=== PATIENT | male | born 1930 | race Asian ===

== ENCOUNTER → 2016-10-14 | Outpatient (CLI) | payer MEDICARE, OTHER ==
[~2016-10-14] MED LIST: ACET325T PO; AMBI5TAB PO; AMLO10 PO; CLON.1T TD; COLA100C3 PO; ENOX30P SQ; INSU100V2 SQ; KETAMINE HCL 500 MG/5 ML VIAL ONE; LEVEMIR SQ; LIPI10TA PO; META28.34 PO; METO25TA3 PO; NIFE30TA8 PO; NITR0.4S SL; NORC5TAB PO; NOVOLOGP2 SQ; TENE1TAB PO; TRAD5TAB PO; XANA1TAB6 PO
[2016-10-14 12:30] LABS: HEMATOCRIT 31.2 % (39.0-51.0); MEAN CORPUSCULAR HEMOGLOBIN 26.8 PG (27.0-34.0); MEAN CORPUSCULAR HGB CONC 32.3 % (32.0-36.0); PLATELET COUNT 285 TH/MM3 (150-450); RED BLOOD COUNT 3.76 MIL/MM3 (4.50-5.90); RED CELL DISTRIBUTION WIDTH 16.2 % (11.6-17.2); REVIEW FLAG FINAL; WHITE BLOOD COUNT 6.8 TH/MM3 (4.0-11.0)
[2016-10-14 12:35] LABS: INTERNATIONAL NORMALIZED RATIO 0.9 RATIO; PROTHROMBIN TIME - PATIENT 10.1 SEC (9.8-11.6)
[2016-10-14 12:53] LABS: BICARBONATE 25.4 MEQ/L (21.0-32.0); POTASSIUM 4.9 MEQ/L (3.5-5.1)
--- NOTE | 2016-10-14 22:13 | EKG ---
Date Performed: 10/14/2016 Time Performed: 12:58:01 PTAGE: 86 years EKG: Sinus rhythm WITH OCCASIONAL SUPRAVENTRICULAR PREMATURE COMPLEXES RIGHT BUNDLE BRANCH BLOCK LEFT ANTERIOR FASCICU LAR BLOCK ABNORMAL ECG Compared to the PREVIOUS TRACING , QRS pattern change precordially may be due to lead placement DOCTOR: Jerry Ruiz Interpretating Date/Time 10/14/2016 22:11:52
== END ==
LOC: CPRE 11:39
PROVIDERS: ATTEND Surgery
DX: Z01.810 Encounter for preprocedural cardiovascular examination (principal); Z01.812 Encounter for preprocedural laboratory examination; N18.6 End stage renal disease; R94.31 Abnormal electrocardiogram [ECG] [EKG]
CPT/HCPCS: 36415; 80048; 85027; 85610; 93005

== ENCOUNTER 2016-10-17 05:41 | Observation (INO) | payer MEDICARE, OTHER ==
[~2016-10-17] VITALS: Ht 165.1 cm; Wt 56.4 kg
[~2016-10-17 05:41] MED LIST changes: -ACET325T PO; -AMBI5TAB PO; -CLON.1T TD; -COLA100C3 PO; -ENOX30P SQ; -KETAMINE HCL 500 MG/5 ML VIAL ONE; -LEVEMIR SQ; -META28.34 PO; -METO25TA3 PO; -NIFE30TA8 PO; -NITR0.4S SL; -NORC5TAB PO; -NOVOLOGP2 SQ
[2016-10-17] MEDS: LACTATED RINGER'S 1000 ML IV SCH (06:00)
[2016-10-17] MEDS ORDERED: INSULIN HUMAN REGULAR 1,000 UNITS/10 ML VIAL SQ PRN (06:15)
[2016-10-17] MEDS ORDERED: METOPROLOL TARTRATE 25 MG TAB PO PRN (06:15)
[2016-10-17 06:26] VITALS: BP 199/73; PULSE 75; RESP 20; TEMP 97.9; O2SAT 99
[2016-10-17] MEDS ORDERED: HEPARIN SODIUM - SQ 10,000 UNITS/ML VIAL ONE (06:27)
[2016-10-17] MEDS: SODIUM CHLORID 0.9% 500 ML IV SCH ×2 (06:40→22:40)
--- NOTE | 2016-10-17 07:03 | PD.VS.PN ---
Pre-operative Note Pre-operative diagnosis: ESRD, need for HD access Planned procedure: R UE access using prosthetic Labs: K 4.9 last week, K pending from today Hct 31 Blood: none needed; patient refuses transfusion Imaging: AVF eval shows inadequate vein B, so prosthetic will be used Post-operative destination: PACU, floor Operative site marked: Yes Consent: Informed consent has been obtained from Vic Damon. I have explained the procedure in detail and discussed the risks, benefits, and potential complications. All questions have been answered. Patient contact information: will be in waiting room There have been no changes in the patient's history since his clinic visit that would preclude proceeding with surgery. To OR. Van Noguera MD Oct 17, 2016 07:03
[2016-10-17] MEDS ORDERED: VANCOMYCIN HCL 1000 MG VIAL ONE (07:23)
[2016-10-17] MEDS ORDERED: SODIUM CHLOR 0.9% 250 ML INJ 250 ML ONE (07:23)
[2016-10-17] MEDS ORDERED: BUPIVACAINE/EPINEPHRINE 0.5% PF 10 ML VIAL INFIL ONE (08:32)
--- NOTE | 2016-10-17 09:20 | HHI.PR ---
Immediate Post Op Note Procedure Date: Oct 17, 2016 Pre Op Diagnosis: ESRD, need for HD access Post Op Diagnosis: ESRD, need for HD access Surgeon: Van Noguera Cop Winder(s): None Procedure: R UE brach-ax with PTFE Findings: 5mm artery, 3mm vein Complications: none apparent Specimen(s) removed: none Estimated blood loss: 20 mL Anesthesia: General Drains: None Fluids: 500 mL IVF Patient to: PACU Patient Condition: Good Implant/Devices: SEE IMPLANT LOG (if applicable) Date/Time of Procedure: SEE SURGICAL CARE RECORD Van Noguera MD Oct 17, 2016 09:20
[2016-10-17] MEDS ORDERED: GLUCAGON 1 MG/ML VIAL OTHER PRN (09:30)
[2016-10-17] MEDS ORDERED: ONDANSETRON HCL 4 MG/2 ML VIAL IV PUSH PRN (09:30)
[2016-10-17] MEDS ORDERED: oxyCODONE/ACETAMINOPHEN 10 MG/325 MG TAB PO PRN (09:30)
[2016-10-17] MEDS ORDERED: oxyCODONE/ACETAMINOPHEN 5 MG/325 MG TAB PO PRN (09:30)
[2016-10-17] MEDS ORDERED: DEXTROSE 50% IN WATER 50 ML VIAL(D50) IV PUSH PRN (09:30)
[2016-10-17] MEDS ORDERED: *ONDANSETRON 4 MG VIAL PERIprocedural Use ONLY ONE (09:42)
[2016-10-17] MEDS ORDERED: DO NOT ADM ANY ANTICOAGULANT DRUGS XX PRN (10:00)
[2016-10-17] MEDS ORDERED: PROTAMINE SULFATE 50 MG/5 ML VIAL IV ONE (12:00)
[2016-10-17] MEDS ORDERED: ePHEDrine/NS 50 MG/5 ML SYR IV ONE (12:00)
[2016-10-17] MEDS ORDERED: ONDANSETRON HCL 4 MG/2 ML VIAL IV PUSH ONE (12:00)
[2016-10-17] MEDS ORDERED: SODIUM CHLORID 0.9% 500 ML INJ 500 ML IV ONE (12:00)
[2016-10-17] MEDS ORDERED: PROPOFOL 200 MG/20 ML AMP IV ONE (12:00)
[2016-10-17] MEDS: INSULIN NovoLIN REGULAR SUPPLEMENTAL SCALE SQ SCH ×2 (12:22→18:31)
--- NOTE | 2016-10-17 13:25 | MP ---
cc: ALTAF NOGUERA MD DATE OF SURGERY: 10/17/2016 PREOPERATIVE DIAGNOSIS Endstage renal disease, needs dialysis access. POSTOPERATIVE DIAGNOSIS Endstage renal disease, needs dialysis access. PROCEDURE Right upper extremity brachial artery to axillary vein arteriovenous graft. ATTENDING SURGEON Altaf Noguera MD RESIDENT SURGEON None. ANESTHESIA General. INDICATION Mr. Damon is a 86-year-old gentleman with endstage renal disease, currently dialyzed with a right chest catheter. He has no autogenous venous options. He is taken to the operating room for surgical access creation. DESCRIPTION OF PROCEDURE Informed consent was obtained from the patient. He was taken to the operating room and placed supine on the operating room table and appropriate timeout was taken to ensure the patient's identity, the operative site and planned procedure. The administration of 750 mg of vancomycin was initiated prior to skin incision and will be discontinued after a single preoperative dose. Vancomycin was chosen because of the patient's endstage renal disease. Everyone in the room agreed to the timeout and we proceeded. His right arm was prepped and draped. An incision was made at the antecubital and carried down to subcutaneous tissue with electrocautery. The brachial artery was identified and it was noted to be about 5 mm in diameter, encircled with a vesseloop. A transverse incision was made in the patient's axilla, carried to subcutaneous tissue with electrocautery. The axillary vein was noted to be quite small but dissected free including a large branch. A tunnel was then created between the two and the 6 mm PTFE was passed through the tunnel, taking caution not to twist it. The patient was systemically heparinized with 3000 units of IV heparin. Proximal and distal control of the brachial artery were obtain with profunda clamps and a longitudinal arteriotomy was made with the [place] scissors. The graft was spatulated and sewn end-to-side with running 5-0 Prolene [place] suture. At the completion it was flushed and noted to be hemostatic. A Daxa Softjaw was placed on the graft. Proximal and distal control of the axillary vein was obtained with profunda clamps and a longitudinal venotomy was made with an 11 blade and extended with Slim scissors. The vein graft was cut to appropriate length, spatulated and sewn end-to-side with running 5-0 [place] suture, several 6-0 Prolene repair sutures were required on the venous anastomosis. Good hemostasis was achieved. Heparin was reversed with protamine. The wounds were irrigated and made hemostatic and closed with 2-0 Polysorb, 3-0 Polysorb and 4-0 Monocryl. At the end of the case there was a nice palpable pulse in the wrist and the graft was palpable underneath the skin. Sponge and needle counts were correct at the end of the case. I was present and scrubbed and performed the entire procedure. MD TERESE Black/NEWTON /10:26 AM /12:46 PM
--- NOTE | 2016-10-17 14:06 | PD.VS.PN ---
Subjective POD #: 1 Procedure(s): R UE AV Fistula Subjective/Hospital Course Pt alert and oriented times 3, with slight discomfort to right arm. Incision intact with no swelling or drainage. Objective Vitals/I&O Date Time Temp Pulse Resp B/P Pulse Ox O2 Delivery O2 Flow Rate FiO2 10/17/16 10:30 80 16 167/79 98 Nasal Cannula 2 10/17/16 10:15 85 14 161/80 97 Nasal Cannula 2 10/17/16 10:00 81 20 163/80 98 Nasal Cannula 2 10/17/16 09:45 78 16 158/74 99 Nasal Cannula 2 10/17/16 09:32 97.7 77 15 166/76 100 Nasal Cannula 2 10/17/16 06:26 97.9 75 20 199/73 99 10/17/16 10/17/16 10/17/16 07:00 15:00 23:00 Intake Total 510 ml Output Total 20 ml Balance 490 ml Exam: GENERAL: SKIN: Warm and dry. HEAD: Normocephalic. EYES: No scleral icterus. No drainage. NECK: Supple, trachea midline. No JVD or lymphadenopathy. CARDIOVASCULAR: Regular rate and rhythm RESPIRATORY: Breath sounds equal bilaterally. No accessory muscle use. GASTROINTESTINAL: Abdomen soft, non-tender, nondistended. MUSCULOSKELETAL: No cyanosis, or edema. Right arm warm and dry with palpable radial pulse Current Medications Medications (Trade) Dose Ordered Sig/Lakisha Route Start Time Stop Time Status Last Admin Lactated Ringer's 1,000 ml @ 30 mls/hr Q24H IV 10/17/16 06:00 (NS 500 ml Inj) 500 ml @ 30 mls/hr [id number] IV 10/17/16 06:00 10/18/16 05:59 10/17/16 06:40 (Ecotrin Ec) 325 mg DAILY PO 10/18/16 09:00 (Zofran Inj) 4 mg Q6H PRN IV PUSH 10/17/16 09:30 (Percocet 5-325 Mg) 1 tab Q4H PRN PO 10/17/16 09:30 (Percocet 10-325 Mg) 1 tab Q4H PRN PO 10/17/16 09:30 (NovoLIN R SUPPLEMENTAL SCALE) 1 Q6HR SQ 10/17/16 12:00 10/17/16 12:22 (D50w (Vial) Inj) 25 ml UNSCH PRN IV PUSH 10/17/16 09:30 (Glucagon Inj) 1 mg UNSCH PRN OTHER 10/17/16 09:30 (Heparin Inj) 5,000 units Q12HR SQ 10/17/16 21:00 (Protonix) 20 mg DAILY PO 10/18/16 09:00 Miscellaneous Information ALL NURSING DEPARTME... UNSCH PRN XX 10/17/16 10:00 10/18/16 09:59 (Norvasc) 10 mg DAILY PO 10/17/16 11:00 (Lipitor) 10 mg HS PO 10/17/16 21:00 (Tenex) 1 mg HS PO 10/17/16 21:00 Patient Own Medication PT OWN MED: TRADJE... DAILY PO 10/18/16 09:00 Pulses: Palpable radial pulses bilat Incisions: incisions intact to right arm with no drainage or swelling, Laboratory Laboratory Tests Test 10/17/16 10/17/16 06:40 07:28 Blood Type A POSITIVE Antibody Screen NEGATIVE Blood Bank Comment Potassium Level 4.2 Assessment and Plan Plan Pt expected to be d/c tomorrow post HD Angie Ashford Oct 17, 2016 14:06
[2016-10-17] MEDS ORDERED: SODIUM CHLOR 0.9% 1000 ML INJ 1,000 ML IV PRN ×3 (16:12)
[2016-10-17] MEDS ORDERED: ALBUMIN HUMAN 25% 25 GM/100 ML BAGP IV PRN (16:15)
[2016-10-17] MEDS ORDERED: NITROGLYCERIN 0.4 MG SL 25 TABS/BTL SL PRN (16:15)
[2016-10-17] MEDS ORDERED: ACETAMINOPHEN 325 MG TAB PO PRN (16:15)
[2016-10-17] MEDS ORDERED: ONDANSETRON HCL 4 MG/2 ML VIAL IV PRN (16:15)
[2016-10-17] MEDS ORDERED: MANNITOL 12.5 GM/50 ML VIAL IV PRN (16:15)
[2016-10-17] MEDS ORDERED: GENTAMICIN SULFATE (DIALYSIS USE ONLY) 20 MG/2 ML VIAL IV PRN (16:15)
[2016-10-17] MEDS ORDERED: diphenhydrAMINE HCL 25 MG CAP PO PRN (16:15)
[2016-10-17] MEDS ORDERED: HEPARIN SODIUM - IV 10,000 UNITS/10 ML VIAL PRN (16:15)
[2016-10-17] MEDS ORDERED: GELATIN 12 MM/7 MM FOAM TOP PRN (16:15)
[2016-10-17] MEDS ORDERED: SODIUM CHLORIDE 0.9% FLUSH 5 ML FLUSH IVF PRN (16:15)
[2016-10-17] MEDS ORDERED: HEPARIN SODIUM - IV 10,000 UNITS/10 ML VIAL IVF PRN (16:15)
[2016-10-17] MEDS ORDERED: cloNIDine HCL 0.1 MG TAB PO PRN (16:15)
--- NOTE | 2016-10-17 16:16 | PD.CONS ---
HPI Service Nephrology Consult Requested By Reason for Consult ESRD on HD Primary Care Physician J Luis Moody M.D. History of Present Illness This is an 86 y/o male dialysis patient who came in for AVF creation of right arm. He has a PermCath currently being used for dialysis. His glucose is low postoperatively, he is awake, alert, but sleepy, receiving dextrose. We were consulted for dialysis management. Typical T-Th-Sat schedule, he has not missed any treatments. He is a full code, is at bedside. (Marley Colon ) Review of Systems Constitutional: COMPLAINS OF: Fatigue Respiratory: DENIES: Shortness of breath Cardiovascular: DENIES: Chest pain, Lower Extremity Edema Gastrointestinal: DENIES: Abdominal pain (Marley Colon) Past Family Social History Allergies: Coded Allergies: Shellfish (Verified Allergy, Unknown, 10/14/16) Past Medical History ESRD on HD T-Th-Sat HTN Anemia DM Hyperlipidemia DM II Past Surgical History AVF creation PermCath Reported Medications No list available Active Ordered Medications Current Medications Medications (Trade) Dose Ordered Sig/Lakisha Route Start Time Stop Time Status Last Admin Lactated Ringer's 1,000 ml @ 30 mls/hr Q24H IV 10/17/16 06:00 (NS 500 ml Inj) 500 ml @ 30 mls/hr [id number] IV 10/17/16 06:00 10/18/16 05:59 10/17/16 06:40 (Ecotrin Ec) 325 mg DAILY PO 10/18/16 09:00 (Zofran Inj) 4 mg Q6H PRN IV PUSH 10/17/16 09:30 (Percocet 5-325 Mg) 1 tab Q4H PRN PO 10/17/16 09:30 (Percocet 10-325 Mg) 1 tab Q4H PRN PO 10/17/16 09:30 (NovoLIN R SUPPLEMENTAL SCALE) 1 Q6HR SQ 10/17/16 12:00 10/17/16 12:22 (D50w (Vial) Inj) 25 ml UNSCH PRN IV PUSH 10/17/16 09:30 (Glucagon Inj) 1 mg UNSCH PRN OTHER 10/17/16 09:30 (Heparin Inj) 5,000 units Q12HR SQ 10/17/16 21:00 (Protonix) 20 mg DAILY PO 10/18/16 09:00 Miscellaneous Information ALL NURSING DEPARTME... UNSCH PRN XX 10/17/16 10:00 10/18/16 09:59 (Norvasc) 10 mg DAILY PO 10/17/16 11:00 (Lipitor) 10 mg HS PO 10/17/16 21:00 (Tenex) 1 mg HS PO 10/17/16 21:00 Patient Own Medication PT OWN MED: TRADJE... 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 (Marley Colon) Physical Exam Vital Signs Vital Signs Date Time Temp Pulse Resp B/P Pulse Ox O2 Delivery O2 Flow Rate FiO2 10/17/16 10:30 80 16 167/79 98 Nasal Cannula 2 10/17/16 10:15 85 14 161/80 97 Nasal Cannula 2 10/17/16 10:00 81 20 163/80 98 Nasal Cannula 2 10/17/16 09:45 78 16 158/74 99 Nasal Cannula 2 10/17/16 09:32 97.7 77 15 166/76 100 Nasal Cannula 2 10/17/16 06:26 97.9 75 20 199/73 99 Physical Exam Elderly male, awake in bed supine oriented x 3 but sleepy normal rate, 3/6 systolic murmur, no gallops Lungs clear in all mcgill PermCath right chest right arm AVF superior to AC fossa, slight erythema, good thrill/bruit no edema in lower extremities. Laboratory Laboratory Tests Test 10/17/16 10/17/16 06:40 07:28 Blood Type A POSITIVE Antibody Screen NEGATIVE Blood Bank Comment Potassium Level 4.2 (Marley Colon) Result Diagram: 10/17/16 07 Assessment and Plan Problem List: (1) ESRD (end stage renal disease) Plan: HD tomorrow and T--Mon, orders entered K acceptable no evidence of fluid overload electrolyte panel in am Epogen with dialysis check phosphorus in am, binders if needed high protein diet monitor AVF postoperatively, vascular following (2) HTN (hypertension) Plan: Blood pressure improved after surgery continue oral medications. (3) DM (diabetes mellitus) Plan: carefully monitor glucose, avoid hypoglycemia on insulin, encouraged nutrition (Marley Colon) Assessment and Plan patient underwent AVF placement. Dialysis on Monday. Hopefully can be discharged after dialysis. (Gzregorz Mancini MD) Marley Colon Oct 17, 2016 16:16 Grzegorz Mancini MD Oct 18, 2016 09:20
[2016-10-17 16:40] LABS: BICARBONATE 24.2 MEQ/L (21.0-32.0); POTASSIUM 3.8 MEQ/L (3.5-5.1)
[2016-10-17] MEDS ORDERED: guanFACINE HCL 1 MG TAB PO SCH (21:00)
[2016-10-17] MEDS ORDERED: ATORVASTATIN 10 MG TAB PO SCH (21:00)
[2016-10-17] MEDS: HEPARIN SODIUM - SQ 10,000 UNITS/ML VIAL SQ SCH (21:00)
[2016-10-18] VITALS: BP 141/65; PULSE 84; RESP 16; TEMP 96.9; O2SAT 92
[2016-10-18 04:00] VITALS: BP 157/67; PULSE 75; RESP 16; TEMP 98.9; O2SAT 94
[2016-10-18] MEDS: LACTATED RINGER'S 1000 ML IV SCH (06:00)
[2016-10-18] MEDS: INSULIN NovoLIN REGULAR SUPPLEMENTAL SCALE SQ SCH ×3 (06:00→12:00)
[2016-10-18 08:00] VITALS: BP 154/70; PULSE 76; RESP 18; TEMP 96.2; O2SAT 95
[2016-10-18] MEDS: HEPARIN SODIUM - SQ 10,000 UNITS/ML VIAL SQ SCH (08:42)
[2016-10-18] MEDS ORDERED: PANTOPRAZOLE SOD 20 MG DELAYED RELEASE TAB PO SCH (09:00)
[2016-10-18] MEDS ORDERED: ASPIRIN EC 325 MG TABEC PO SCH (09:00)
[2016-10-18] MEDS ORDERED: NON-FORMULARY DRUG (Linagliptin (Tradjenta) 5 MG) PO SCH (09:00)
[2016-10-18] MEDS ORDERED: PT OWN - TRADJENTA 5 MG PO SCH (09:00)
--- NOTE | 2016-10-18 09:07 | PD.VS.PN ---
Subjective Procedure(s): R UE AV Fistula Subjective/Hospital Course Pt resting comfortably with at the BS, pt is alert and oriented times 3, with slight discomfort to right arm. Objective Vitals/I&O Date Time Temp Pulse Resp B/P Pulse Ox O2 Delivery O2 Flow Rate FiO2 10/18/16 08:00 96.2 76 18 154/70 95 10/18/16 04:00 98.9 75 16 157/67 94 10/18/16 00:00 96.9 84 16 141/65 92 10/17/16 21:15 98.0 82 16 153/69 98 Room Air 10/17/16 20:00 80 15 152/74 99 Room Air 10/17/16 19:00 97.8 82 16 151/70 98 Room Air 10/17/16 18:00 80 16 151/73 97 Room Air 10/17/16 17:00 81 16 152/71 97 Room Air 10/17/16 16:00 97.6 80 16 153/74 96 Room Air 10/17/16 15:00 75 16 151/72 96 Room Air 10/17/16 14:00 80 16 149/75 96 Room Air 10/17/16 13:00 79 16 155/73 100 Nasal Cannula 2 10/17/16 12:00 78 16 159/70 99 Nasal Cannula 2 10/17/16 11:00 80 16 163/72 98 Nasal Cannula 2 10/17/16 10:40 97.5 81 16 165/75 98 Nasal Cannula 2 10/17/16 10:30 80 16 167/79 98 Nasal Cannula 2 10/17/16 10:15 85 14 161/80 97 Nasal Cannula 2 10/17/16 10:00 81 20 163/80 98 Nasal Cannula 2 10/17/16 09:45 78 16 158/74 99 Nasal Cannula 2 10/17/16 09:32 97.7 77 15 166/76 100 Nasal Cannula 2 Exam: GENERAL: SKIN: Warm and dry. MUSCULOSKELETAL: No cyanosis, or edema noted to bilat UE Pulses: RUE presents with a strong radial pulse with positive palpable thrill over AV graft Incisions: Both incisions remain intact with no redness, swelling or drainage Laboratory Laboratory Tests Test 10/17/16 15:22 Sodium Level 138 Potassium Level 3.8 Chloride Level 106 Carbon Dioxide Level 24.2 Anion Gap 8 Blood Urea Nitrogen 27 Creatinine 3.29 Estimat Glomerular Filtration 18 Rate Random Glucose 101 Calcium Level 7.8 Assessment and Plan Plan Pt to be D/C today after HD Discussed F/U appointment with pt and spouse for Nov 11 at 1000 in outpatient clinic Instructions given to pt and to call the office if any concerns or questions develop before f/u appt nAgie Ashford Oct 18, 2016 09:07
--- NOTE | 2016-10-18 09:43 | HHI.NPPN ---
Subjective Renal Failure: Chronic, End Stage Renal Disease Interval History Seen during dialysis. He is doing well postoperatively. (Marley Colon) Objective Data Data 10/17/16 10/18/16 19:00 07:00 Intake Total 990 ml Output Total 395 ml 200 ml Balance 595 ml -200 ml Intake Oral 490 ml IV Total 0 ml Other 500 ml Output Urine Total 375 ml 200 ml Estimated Blood Loss 20 ml Vital Signs Date Time Temp Pulse Resp B/P Pulse Ox O2 Delivery O2 Flow Rate FiO2 10/18/16 08:00 96.2 76 18 154/70 95 10/18/16 04:00 98.9 75 16 157/67 94 10/18/16 00:00 96.9 84 16 141/65 92 10/17/16 21:15 98.0 82 16 153/69 98 Room Air 10/17/16 20:00 80 15 152/74 99 Room Air 10/17/16 19:00 97.8 82 16 151/70 98 Room Air 10/17/16 18:00 80 16 151/73 97 Room Air 10/17/16 17:00 81 16 152/71 97 Room Air 10/17/16 16:00 97.6 80 16 153/74 96 Room Air 10/17/16 15:00 75 16 151/72 96 Room Air 10/17/16 14:00 80 16 149/75 96 Room Air 10/17/16 13:00 79 16 155/73 100 Nasal Cannula 2 10/17/16 12:00 78 16 159/70 99 Nasal Cannula 2 10/17/16 11:00 80 16 163/72 98 Nasal Cannula 2 10/17/16 10:40 97.5 81 16 165/75 98 Nasal Cannula 2 10/17/16 10:30 80 16 167/79 98 Nasal Cannula 2 10/17/16 10:15 85 14 161/80 97 Nasal Cannula 2 10/17/16 10:00 81 20 163/80 98 Nasal Cannula 2 10/17/16 09:45 78 16 158/74 99 Nasal Cannula 2 (Marley Colon) -: 10/17/16 1522 Tubes & Lines: Perma-Cath (Marley Colon) Physical Exam General Appearance: Well Developed, No Acute Distress, Comfortable (Marley Colon) Eyes Eye Exam: Pupils Equal (Marley Colon) Throat Throat Exam: Oral Mucosa [place] & Moist (Marley Colon) Pulmonary Resp Exam: Clear Bilaterally, Breath Sounds Equal (Marley Colon) Cardiology CV Exam: Normal Sinus Rhythm CV Remarks 3/6 systolic murmur (Marley Colon) Gastrointestinal/Abdomen GI Exam: Soft, Non-Tender, Bowel Sounds Present (Marley Colon) Musculoskeletal MS Exam: Joints Intact, Good Strength (Marley Colon) Integumentary Skin Exam: Clear, Warm, Dry, Intact (Marley Colon) Extremeties Extremities Exam: No Edema, Pedal Pulses Palpable Extremeties Remarks right arm, new AVF, faint thrill/bruit, (Marley Colon) Neurologic Neuro Exam: Alert, Awake, Oriented, Speech Clear, Moving All Extremities ( Marley Colon) Assessment/Plan Discussed Condition With: Patient Assessment Summary: Anemia of CKD, Hypertension, End Stage Renal Disease Problem List: (1) ESRD (end stage renal disease) Plan: Seen during dialysis on a 3K, 350 BFR, goal 2L using PermCath for HD s/p AVF creation yesterday no electrolyte concerns he is stable for discharge after dialysis if approved by vascular. has outpatient HD arrangement high protein diet monitor AVF postoperatively, vascular following (2) HTN (hypertension) Plan: Blood pressure acceptable continue oral medications. (3) DM (diabetes mellitus) Plan: carefully monitor glucose, avoid hypoglycemia on insulin, encouraged nutrition (Marley Colon) Plan patient was seen and examined during dialysis. Tolerating 2 liters of UF. He is stable for discharge from renal standpoint. AVF : positive thrill and bruit. ( Grzegorz Mancini MD) Marley Colon Oct 18, 2016 09:43 Grzegorz Mancini MD Oct 18, 2016 10:49
[2016-12-29] MEDS ORDERED: CLON.1T TD (08:05)
[2016-12-29] MEDS ORDERED: NIFE30TA8 PO (08:05)
[2016-12-29] MEDS ORDERED: ENOX30P SQ (08:05)
[2016-12-29] MEDS ORDERED: ACET325T PO (08:05)
[2016-12-29] MEDS ORDERED: NITR0.4S SL (08:05)
[2016-12-29] MEDS ORDERED: AMBI5TAB PO ×2 (08:05→08:18)
[2016-12-29] MEDS ORDERED: META28.34 PO (08:05)
[2016-12-29] MEDS ORDERED: METO25TA3 PO (08:05)
[2016-12-29] MEDS ORDERED: TENE1TAB PO (08:05)
[2016-12-29] MEDS ORDERED: LIPI10TA PO (08:05)
[2016-12-29] MEDS ORDERED: LEVEMIR SQ (08:05)
[2016-12-29] MEDS ORDERED: COLA100C3 PO (08:05)
[2016-12-29] MEDS ORDERED: NOVOLOGP2 SQ (08:10)
== END 2016-10-18 14:24 | disposition home or self-care (01) ==
LOC: HSDC 05:41 → HSDI 09:25 → N06B 23:04
PROVIDERS: ADMIT Surgery; ATTEND Surgery
DX: I12.0 Hypertensive chronic kidney disease with stage 5 chronic kidney disease or end stage renal disease (principal); E11.22 Type 2 diabetes mellitus with diabetic chronic kidney disease; N18.6 End stage renal disease; D64.9 Anemia, unspecified; E78.5 Hyperlipidemia, unspecified; Z99.2 Dependence on renal dialysis
CPT/HCPCS: 01844; 36830; 76937; 80048; 82948; 84132; 86850; 86900; 86901; 90935; 96374; C1768; G0378; J1580; J1644; J2405; J2720; J3010; J3370; J7040; J7050

== ENCOUNTER → 2016-11-02 | Outpatient (CLI) | payer MEDICARE, OTHER ==
[~2016-11-02] MED LIST changes: +ACET325T PO; +AMBI5TAB PO; +CLON.1T TD; +COLA100C3 PO; +ENOX30P SQ; +LEVEMIR SQ; +META28.34 PO; +METO25TA3 PO; +NIFE30TA8 PO; +NITR0.4S SL; +NORC5TAB PO; +NOVOLOGP2 SQ; -XANA1TAB6 PO
[2016-11-02 09:21] LABS: HEMATOCRIT 33.1 % (39.0-51.0); MEAN CELL VOLUME 84.1 FL (80.0-100.0); MEAN CORPUSCULAR HEMOGLOBIN 26.8 PG (27.0-34.0); MEAN CORPUSCULAR HGB CONC 31.9 % (32.0-36.0); PLATELET COUNT 275 TH/MM3 (150-450); RED BLOOD COUNT 3.93 MIL/MM3 (4.50-5.90); RED CELL DISTRIBUTION WIDTH 16.8 % (11.6-17.2); WHITE BLOOD COUNT 7.4 TH/MM3 (4.0-11.0)
[2016-11-02 09:24] LABS: HEMO FLAGS AUTO DIFF
[2016-11-02 10:14] LABS: BASOPHILS 2 % (0-2); EOSINOPHILS 2 % (0-4); NEUTROPHIL # MANUAL DIFF 5.8 TH/MM3 (1.8-7.7); PLATELET ESTIMATE SMEAR NORMAL (NORMAL); PLATELET MORPHOLOGY NORMAL (NORMAL); POLYS (SEG NEUTROPHILS) 78 % (16-70); SCAN/DIFF FINAL DIFF MANUAL; WBC DIFF SAMPLE 100
[2016-11-02 10:16] LABS: ALKALINE PHOSPHATASE 111 U/L (45-117); ALT (GPT) 12 U/L (12-78); ANION GAP 10 MEQ/L (5-15); AST (GOT) 14 U/L (15-37); BICARBONATE 24.4 MEQ/L (21.0-32.0); BLOOD UREA NITROGEN 22 MG/DL (7-18); CHLORIDE 104 MEQ/L (98-107); FERRITIN 212 NG/ML (26-388); GLOMERULAR FILTRATION RATE 20 ML/MIN (>89); GLUCOSE,FASTING 85 MG/DL (74-99); HDL CHOLESTEROL 83.1 MG/DL (40.0-60.0); LDL CHOLESTEROL 81 MG/DL (0-99); POTASSIUM 4.7 MEQ/L (3.5-5.1); SODIUM (NA) 138 MEQ/L (136-145); TOTAL BILIRUBIN ADULT 0.2 MG/DL (0.2-1.0); TRANSFERRIN IRON PROFILE 220 MG/DL (200-360)
[2016-11-02 15:51] LABS: HEMOGLOBIN A1b 0.9 %; HEMOGLOBIN Ao 83.6 %; HEMOGLOBIN F 1.1 %; HEMOGLOBIN LA1C 1.8 %; HEMOGLOBIN P3 4.2 %
== END ==
LOC: PLAB 06:45
PROVIDERS: ATTEND Internal Medicine
DX: E78.5 Hyperlipidemia, unspecified (principal); I12.9 Hypertensive chronic kidney disease with stage 1 through stage 4 chronic kidney disease, or unspecified chronic kidney disease; N18.4 Chronic kidney disease, stage 4 (severe); E11.22 Type 2 diabetes mellitus with diabetic chronic kidney disease; D63.1 Anemia in chronic kidney disease
CPT/HCPCS: 36415; 80053; 80061; 82607; 82728; 82746; 83036; 83540; 83550; 84443; 85007; 85027

== ENCOUNTER 2016-12-07 06:11 | Day surgery (SDC) | payer MEDICARE, OTHER ==
[~2016-12-07] VITALS: Ht 165.1 cm; Wt 55.7 kg
[~2016-12-07 06:11] MED LIST changes: -ACET325T PO; -AMBI5TAB PO; -CLON.1T TD; -COLA100C3 PO; -ENOX30P SQ; -LEVEMIR SQ; -META28.34 PO; -METO25TA3 PO; -NIFE30TA8 PO; -NITR0.4S SL; -NORC5TAB PO; -NOVOLOGP2 SQ
[2016-12-07 07:05] LABS: AUTOMATED NEUTROPHIL # 3.6 TH/MM3 (1.8-7.7); BASOPHIL # 0.1 TH/MM3 (0-0.2); BASOPHIL % 0.9 % (0.0-2.0); EOSINOPHIL # 0.3 TH/MM3 (0-0.4); EOSINOPHIL % 4.9 % (0.0-4.0); HEMO FLAGS DIFF FINAL; LYMPH % 20.2 % (9.0-44.0); LYMPHOCYTE # 1.2 TH/MM3 (1.0-4.8); MEAN CELL VOLUME 83.7 FL (80.0-100.0); MEAN CORPUSCULAR HEMOGLOBIN 27.8 PG (27.0-34.0); MEAN CORPUSCULAR HGB CONC 33.3 % (32.0-36.0); MONO % 12.2 % (0.0-8.0); NEUT % 61.8 % (16.0-70.0); PLATELET COUNT 209 TH/MM3 (150-450); RED BLOOD COUNT 4.66 MIL/MM3 (4.50-5.90); RED CELL DISTRIBUTION WIDTH 16.8 % (11.6-17.2); WHITE BLOOD COUNT 5.9 TH/MM3 (4.0-11.0)
[2016-12-07 07:12] VITALS: BP 174/74; PULSE 64; RESP 18; TEMP 98; O2SAT 100
[2016-12-07 07:26] LABS: POTASSIUM 4.1 MEQ/L (3.5-5.1)
[2016-12-07] MEDS ORDERED: HEPARIN-NS/PF INJ 500 ML ONE (08:48)
[2016-12-07] MEDS ORDERED: methylPREDNISolone SOD SUCC 125 MG/2 ML VIAL ONE (08:53)
[2016-12-07] MEDS ORDERED: HEPARIN SODIUM - IV 10,000 UNITS/10 ML VIAL ONE (09:00)
--- NOTE | 2016-12-07 09:21 | HHI.PR ---
Immediate Post Op Note Procedure Date: Dec 07, 2016 Pre Op Diagnosis: failing R UE fistula Post Op Diagnosis: failing R UE fistula, outflow stenosis Surgeon: Van Noguera Crusher Screen Repairer(s): none Procedure: R UE fistulogram FURNITURE INSPECTOR of outflow stenosis (6mm) Findings: outflow stenosis Complications: none apparent Specimen(s) removed: none Estimated blood loss: trace Anesthesia: MAC Drains: None Patient to: Other (DOCU) Patient Condition: Good Implant/Devices: SEE IMPLANT LOG (if applicable) Date/Time of Procedure: SEE SURGICAL CARE RECORD Van Noguera MD Dec 07, 2016 09:21
--- NOTE | 2016-12-07 09:25 | PD.VS.DC ---
Discharge Summary Admission Date: 12/07/16 Discharge Date: Dec 07, 2016 Admission Diagnosis: (1) ESRD (end stage renal disease) Discharge Diagnosis: (1) ESRD (end stage renal disease) Status: Acute Brief History from admission 86 yo male with ESRD, s/p R UE AVG. Pulsatile on exam. Scheduled for outpatient fistulogram Procedure(s): R UE fistulogram PRINTING PRESS OPERATOR APPRENTICE of outflow vein (6mm) Significant Findings Laboratory Tests Test 12/07/16 06:50 Mean Platelet Volume 6.8 FL (7.0-11.0) Monocytes (%) (Auto) 12.2 % (0.0-8.0) Eosinophils (%) (Auto) 4.9 % (0.0-4.0) Blood Urea Nitrogen 22 MG/DL (7-18) Creatinine 2.87 MG/DL (0.60-1.30) Estimat Glomerular Filtration 21 ML/MIN (>89) Rate Calcium Level 8.3 MG/DL (8.5-10.1) Hospital Course: Pt underwent R UE fistulogram and PRINTING PRESS OPERATOR APPRENTICE of outflow stenosis. Pt tolerated well. No apparent procedural complications Discharge Condition: Good Discharge Disposition: Discharge Home Any questions or concerns: Call [facility] Heart [facility] V[facility] Surgery at [facility] [phone] Van Noguera MD Dec 07, 2016 09:25
[2016-12-07] MEDS ORDERED: IODIXANOL 320 MG/ML 100 ML VIAL (for Cath Lab) OTHER ONE (10:55)
--- NOTE | 2016-12-07 13:02 | MP ---
cc: ALTAF NOGUERA MD DATE OF SURGERY 12/07/2016 PREOPERATIVE DIAGNOSIS Failing right upper extremity arteriovenous fistula POSTOPERATIVE DIAGNOSIS Failing right upper extremity arteriovenous fistula PROCEDURE Right upper extremity fistulogram, angioplasty of outflow vein SURGEON Altaf Noguera MD ANESTHESIA Local with sedation INDICATIONS Mr. Damon is an 86 year-old gentleman with right upper extremity brachial artery, axillary vein, arteriovenous graft. It is pulsatile and he is taken to the operating room for angiographic evaluation and treatment. There are no prior catheterizations for my review. DESCRIPTION OF PROCEDURE Informed consent was obtained. The patient was taken to the operating room, placed supine on the operating room table. An appropriate time out as taken to ensure the patient's identity, the operative site, and planned procedure. The administration of antibiotics was not necessary since this is a clean procedure without the planned implantation of any foreign object and everyone in the room agreed with the time out and we proceeded. His right arm was then prepped and draped and locally anesthetized with 1% lidocaine. A 21 gauge micropuncture needle was used to access the fistula. This was exchanged using Seldinger technique through the Micropuncture sheath through which a fistulogram was obtained. The patient was systemically heparinized with 3000 units of IV heparin and 0.035 Stork wire was introduced and the Micropuncture sheath was exchanged for a 5 Serbian sheath and the outflow vein was angioplastied with a 6 mm balloon. At the completion, the angiogram showed improvement in the stenosis. There was no extravasation. The wire, cath and sheath were removed and pressure held for hemostasis. There were no complications. I was present and scrubbed for the entire procedure. MD TERESE Black/TINA /9:32 AM /12:47 PM MEENU
[2016-12-29] MEDS ORDERED: NITR0.4S SL (08:05)
[2016-12-29] MEDS ORDERED: METO25TA3 PO (08:05)
[2016-12-29] MEDS ORDERED: COLA100C3 PO (08:05)
[2016-12-29] MEDS ORDERED: LIPI10TA PO (08:05)
[2016-12-29] MEDS ORDERED: NIFE30TA8 PO (08:05)
[2016-12-29] MEDS ORDERED: ACET325T PO (08:05)
[2016-12-29] MEDS ORDERED: TENE1TAB PO (08:05)
[2016-12-29] MEDS ORDERED: CLON.1T TD (08:05)
[2016-12-29] MEDS ORDERED: AMBI5TAB PO ×2 (08:05→08:18)
[2016-12-29] MEDS ORDERED: LEVEMIR SQ (08:05)
[2016-12-29] MEDS ORDERED: ENOX30P SQ (08:05)
[2016-12-29] MEDS ORDERED: META28.34 PO (08:05)
[2016-12-29] MEDS ORDERED: NOVOLOGP2 SQ (08:10)
--- NOTE | 2017-02-20 16:04 | HHI.HP ---
History of Present Illness Chief Complaint: L UE swelling after L UE access History of Present Illness 86 yo male with ESRD, s/p R UE AVG. Pulsatile on exam. Scheduled for outpatient fistulogram no f/c of late and no reason to preclude procedure. Past/Family/Social History Past Medical History HTN DM constipation ESRD Past Surgical History AVF Social History nonsmoker, lives with Home Medications Active Scripts Zolpidem (Ambien)5 Mg Tab5 Mg PO HS PRN (INSOMNIA) #30 TAB Ref 0 Prov:Jayla Kohler MD 12/29/16 Insulin Aspart Inj (Novolog Inj)1,000 Unit/10 Ml Vial1-9 Units SQ ACHS #10 ML Ref 0 Max dose at bedtime:( )units; sugars less than 70,(0)units; sugars 150-199,(1) unit; sugars 200-249,(3) units; sugars 250-299,(5) units; sugars 300-349,(7) units; sugars greater than 349,(9) units Prov:Dahiana Weber 12/29/16 Enoxaparin Inj (Lovenox Inj)30 Mg/0.3 Ml Syr30 Mg SQ DAILY #14 INJECTION Prov:Dahiana Weber 12/29/16 Nifedipine ER 24 HR 30 Mg Tab30 Mg PO DAILY 30 Days Ref 1 Prov:Dahiana Weber 12/29/16 Nitroglycerin SL (Nitrostat SL)0.4 Mg Subl0.4 Mg SL UNSCH PRN (CHEST PAIN) 30 Days Prov:Dahiana Weber 12/29/16 Insulin Detemir Inj (Levemir Inj)1,000 unit/ 10 ML Vial20 Units SQ Q12HR 30 Days Ref 1 Prov:Dahiana Weber 12/29/16 Clonidine 168 HR Patch (Efleswrl-Grj-0 168 HR Patch)0.1 Mg/24 Hr Patch1 Patch TD Q7D 30 Days Prov:Dahiana Weber 12/29/16 Acetaminophen 325 Mg Bav341 Mg PO UNSCH PRN (for headach, pain, temp > 101F) 30 Days Prov:Dahiana Weber 12/29/16 Psyllium Powder (Metamucil Smooth Texture)28.3 % Pow1 Scoop PO DAILY #30 CONTAINER Ref 1 1 rounded [place] in 8 oz of liquid at the first sign of irregularity. Prov:DawitdenilsonDahiana 12/29/16 Docusate Sodium (Colace)100 Mg Law472 Mg PO BID #60 CAP Ref 0 Prov:Dahiana Weber 12/29/16 Metoprolol Tartrate 25 Mg Tab25 Mg PO BID #60 TAB Ref 1 Prov:DawitdenilsonDahiana 12/29/16 Atorvastatin (Lipitor)10 Mg Tab10 Mg PO HS #30 TAB Ref 1 Prov:Dahiana Weber 12/29/16 Guanfacine (Tenex)1 Mg Tab1 Mg PO HS #30 TAB Ref 1 Do not crush, chew or divide tablet. Take with a meal. Prov:DawitdenilsonDahiana JAVED 12/29/16 Enoxaparin Inj (Lovenox Inj)30 Mg/0.3 Ml Syr30 Mg SQ DAILY #30 INJECTION Prov:Frances Lowery MD 12/14/16 Coded Allergies: Shellfish (Verified Allergy, Unknown, 10/14/16) Review of Systems Constitutional: COMPLAINS OF: Chills, DENIES: Fever Cardiovascular: DENIES: Chest pain Physical Exam Neuro: alert, oriented, appropriately "grumpy" bc of hunger HEENT: NC/AT Neck: no JVD Heart: reg rate Lungs: nonlabored Vascular: R UE with + thrill, pulsatile and mild arm swelling Assessment and Plan Assessment: (1) ESRD (end stage renal disease) Status: Acute Plan R UE fistulogram, to be done as outpatient. Van Noguera MD February 20, 2017 16:04
== END 2016-12-07 13:11 | disposition home or self-care (01) ==
LOC: HCAT 06:11 → HDIC 06:12 → HCAT 13:11
PROVIDERS: ATTEND Surgery
DX: T82.858A Stenosis of other vascular prosthetic devices, implants and grafts, initial encounter (principal); I12.0 Hypertensive chronic kidney disease with stage 5 chronic kidney disease or end stage renal disease; N18.6 End stage renal disease
CPT/HCPCS: 37248; 75820; 80048; 85025; C1769; C1893; J1644; J2930; J3010; Q9967

== ENCOUNTER 2016-12-09 15:40 | Inpatient (IN) | payer MEDICARE, OTHER ==
[2016-12-09 15:45] VITALS: BP 128/61; PULSE 76; RESP 18; TEMP 97.9; O2SAT 98
--- NOTE | 2016-12-09 15:57 | PD ---
HPI Chief Complaint: Fall Time Seen by Provider: 15:49 Travel History International Travel<30 days: No Contact w/Intl Traveler<30days: No Traveled to known affect area: No History of Present Illness HPI The patient is a 86-year-old male who presents emergency department for right hip pain. The patient had finished dialysis earlier today and was taking out the garbage when he tripped and fell. The patient apparently landed on the right hip and was unable to ambulate secondary to pain. The patient denies any loss of consciousness or neck pain. He does complain of right hip pain with inability to ambulate. The patient's primary physician is Dr. Moody and the patient's director dental services is Dr. Chaudhary. The patient denies any acute chest pain or shortness of breath. The patient does have a permacath in place as well as a right AV fistula, he states they now uses right AV fistula. PFSH Past Medical History Arthritis: Yes (right knee) Asthma: Yes ( A CHILD) Anxiety: No Cancer: No Cardiovascular Problems: No High Cholesterol: Yes Diabetes: Yes Diminished Hearing: Yes Endocrine: Yes Gastrointestinal Disorders: No Genitourinary: No Hepatitis: No Hiatal Hernia: No Hypertension: Yes Immune Disorder: No Musculoskeletal: Yes (OA) Neurologic: No Psychiatric: No Reproductive: No Respiratory: Yes (ASTHMA A CHILD) Thyroid Disease: No Past Surgical History Abdominal Surgery: Yes (hernia repair) AICD: No Genitourinary Surgery: Yes (TURP) Joint Replacement: No Pacemaker: No Other Surgery: Yes (INGUINAL HERNIA, HEMORRHOIDECTOMY) Social History Alcohol Use: No Tobacco Use: No Substance Use: No Allergies-Medications (Allergen,Severity, Reaction): Coded Allergies: Shellfish (Verified Allergy, Unknown, 10/14/16) Reported Meds & Prescriptions Reported Meds & Active Scripts Active Reported Humulin R Inj (Insulin Human Regular) 1,000 Unit/10 Ml Vial 6 Units SQ HS Tradjenta (Linagliptin) 5 Mg Tab 5 Mg PO DAILY Lipitor (Atorvastatin Calcium) 10 Mg Tab 10 Mg PO HS Norvasc (Amlodipine Besylate) 10 Mg Tab 10 Mg PO DAILY Tenex (Guanfacine HCl) 1 Mg Tab 1 Mg PO HS Do not crush, chew or divide tablet. Take with a meal. Review of Systems HENT: No: Headaches, Neck Pain Cardiovascular: No: Chest Pain or Discomfort Respiratory: No: Shortness of Breath Gastrointestinal: No: Nausea, Vomiting, Abdominal Pain Genitourinary: Positive: Decreased Urinary Output (history of end-stage renal disease on dialysis) Musculoskeletal: Positive: Limited ROM, Pain Neurologic: No: Dizziness Physical Exam Narrative GENERAL: Awake, alert, 86-year-old male appears his stated age and appears in moderate discomfort. SKIN: Warm and dry. HEAD: Atraumatic. Normocephalic. EYES: No drainage noted. ENT: No nasal bleeding or discharge. Mucous membranes pink and moist. NECK: Trachea midline. No JVD. CARDIOVASCULAR: Regular rate and rhythm. No murmur appreciated. RESPIRATORY: No accessory muscle use. Clear to auscultation. Breath sounds equal bilaterally. GASTROINTESTINAL: Abdomen soft, non-tender, nondistended. No rebound tenderness. MUSCULOSKELETAL: Patient is lying on his left side. Unable to assess shortening or rotation secondary to patient's disposition. However, he has tenderness over the right hip. Positive right dorsalis pedal pulse. Right AV fistula positive thrill and dressing in place. NEUROLOGICAL: Awake and alert. No obvious cranial nerve deficits. Motor grossly within normal limits. Normal speech. Patient is able to move the toes of the right foot. PSYCHIATRIC: Appropriate mood and affect; insight and judgment normal. Data Data Last Documented VS Vital Signs Date Time Temp Pulse Resp B/P Pulse Ox O2 Delivery O2 Flow Rate FiO2 12/09/16 15:45 97.9 76 18 128/61 98 Orders Complete Blood Count With Diff (12/09/16 15:50) Comprehensive Metabolic Panel (12/09/16 15:50) Prothrombin Time / Inr (Pt) (12/09/16 15:50) Act Partial Throm Time (Ptt) (12/09/16 15:50) Type And Screen (12/09/16 15:50) Chest, Single Ap (12/09/16 15:50) Hip, Uni(Ap&Lat) W Ap Pelvis (12/09/16 15:50) Iv Access Insert/Monitor (12/09/16 15:50) Oximetry (12/09/16 15:50) Ecg Monitoring (12/09/16 15:50) Morphine Inj (Morphine Inj) (12/09/16 16:00) Ondansetron Inj (Zofran Inj) (12/09/16 16:00) Sodium Chloride 0.9% Flush (Ns Flush) (12/09/16 16:00) Admit Order (Ed Use Only) (12/09/16 16:42) Consult Orthopedic (12/09/16 ) Labs Laboratory Tests Test 12/09/16 16:04 White Blood Count 8.4 TH/MM3 Red Blood Count 4.47 MIL/MM3 Hemoglobin 12.3 GM/DL Hematocrit 37.6 % Mean Corpuscular Volume 84.1 FL Mean Corpuscular Hemoglobin 27.6 PG Mean Corpuscular Hemoglobin 32.8 % Concent Red Cell Distribution Width 16.4 % Platelet Count 191 TH/MM3 Mean Platelet Volume 7.0 FL Neutrophils (%) (Auto) 74.7 % Lymphocytes (%) (Auto) 13.8 % Monocytes (%) (Auto) 9.4 % Eosinophils (%) (Auto) 1.3 % Basophils (%) (Auto) 0.8 % Neutrophils # (Auto) 6.3 TH/MM3 Lymphocytes # (Auto) 1.2 TH/MM3 Monocytes # (Auto) 0.8 TH/MM3 Eosinophils # (Auto) 0.1 TH/MM3 Basophils # (Auto) 0.1 TH/MM3 CBC Comment DIFF FINAL Differential Comment Prothrombin Time 10.1 SEC Prothromb Time International 0.9 RATIO Ratio Activated Partial 24.5 SEC Thromboplast Time Sodium Level 136 MEQ/L Potassium Level 4.2 MEQ/L Chloride Level 100 MEQ/L Carbon Dioxide Level 25.0 MEQ/L Anion Gap 11 MEQ/L Blood Urea Nitrogen 28 MG/DL Creatinine 3.30 MG/DL Estimat Glomerular Filtration 18 ML/MIN Rate Random Glucose 176 MG/DL Calcium Level 8.3 MG/DL Total Bilirubin 0.2 MG/DL Aspartate Amino Transf 14 U/L (AST/SGOT) Alanine Aminotransferase 19 U/L (ALT/SGPT) Alkaline Phosphatase 135 U/L Total Protein 7.6 GM/DL Albumin 3.6 GM/DL Blood Type A POSITIVE Antibody Screen NEGATIVE MDM Medical Decision Making Medical Screen Exam Complete: Yes Emergency Medical Condition: Yes Medical Record Reviewed: Yes Interpretation(s) Last Impressions Hip and Pelvis X-Ray 12/09/16 1550 Signed Impressions: Service Date/Time: Friday, December 09, 2016 16:19 - CONCLUSION: Intertrochanteric fracture right hip. Parish Metcalf MD Chest X-Ray 12/09/16 6190 Signed Impressions: Service Date/Time: Friday, December 09, 2016 16:21 - CONCLUSION: Minimal left basilar density likely atelectasis. Parish Metcalf MD Laboratory Tests Test 12/09/16 16:04 White Blood Count 8.4 TH/MM3 Red Blood Count 4.47 MIL/MM3 Hemoglobin 12.3 GM/DL Hematocrit 37.6 % Mean Corpuscular Volume 84.1 FL Mean Corpuscular Hemoglobin 27.6 PG Mean Corpuscular Hemoglobin 32.8 % Concent Red Cell Distribution Width 16.4 % Platelet Count 191 TH/MM3 Mean Platelet Volume 7.0 FL Neutrophils (%) (Auto) 74.7 % Lymphocytes (%) (Auto) 13.8 % Monocytes (%) (Auto) 9.4 % Eosinophils (%) (Auto) 1.3 % Basophils (%) (Auto) 0.8 % Neutrophils # (Auto) 6.3 TH/MM3 Lymphocytes # (Auto) 1.2 TH/MM3 Monocytes # (Auto) 0.8 TH/MM3 Eosinophils # (Auto) 0.1 TH/MM3 Basophils # (Auto) 0.1 TH/MM3 CBC Comment DIFF FINAL Differential Comment Prothrombin Time 10.1 SEC Prothromb Time International 0.9 RATIO Ratio Activated Partial 24.5 SEC Thromboplast Time Sodium Level 136 MEQ/L Potassium Level 4.2 MEQ/L Chloride Level 100 MEQ/L Carbon Dioxide Level 25.0 MEQ/L Anion Gap 11 MEQ/L Blood Urea Nitrogen 28 MG/DL Creatinine 3.30 MG/DL Estimat Glomerular Filtration 18 ML/MIN Rate Random Glucose 176 MG/DL Calcium Level 8.3 MG/DL Total Bilirubin 0.2 MG/DL Aspartate Amino Transf 14 U/L (AST/SGOT) Alanine Aminotransferase 19 U/L (ALT/SGPT) Alkaline Phosphatase 135 U/L Total Protein 7.6 GM/DL Albumin 3.6 GM/DL Blood Type A POSITIVE Antibody Screen NEGATIVE Differential Diagnosis Differential diagnosis includes hip fracture, hip dislocation, hip contusion, pelvic fracture, mechanical fall. Narrative Course IV was established, labs are drawn and sent, and the patient was placed on cardiac telemetry monitoring and continuous pulse oximetry monitoring. Pelvis x -ray and x-ray of the right hip were obtained. Patient was administered morphine and Zofran for his symptoms. The states the patient goes to dialysis on Tuesdays, , Saturdays. She states the patient had dialysis yesterday. X-rays positive for right intertrochanteric fracture. Therefore, the patient will be admitted. The patient's primary physician is Dr. Bansal and his director dental services is Dr. Chaudhary. I discussed the patient with the [facility] hospitalist group, Dr. Lowery, who agrees with admission. The patient will be admitted to medical floor. Dr. Sow will follow-up on the CMP which are pending. Physician Communication Physician Communication I discussed the patient with Dr. Lowery who agrees with admission. Diagnosis Primary Impression: Fracture, intertrochanteric, right femur Qualified Code: S72.141A - Fracture, intertrochanteric, right femur, closed, initial encounter Additional Impression: ESRD (end stage renal disease) Admitting Information Admitting Physician Requests: Admit Scripts Hydrocodone-Acetaminophen (Irving)5-325 mg Tab1 Tab PO Q4H PRN (PAIN) #60 TAB Ref 0 Prov:José Luis Amanda Jr., MD 12/11/16 Condition: Stable Bartolome Epperson MD Dec 09, 2016 15:57
[2016-12-09] MEDS ORDERED: MORPHINE SULFATE 4 MG/ML INJ IV PUSH ONE (16:00)
[2016-12-09] MEDS ORDERED: SODIUM CHLORIDE 0.9% FLUSH 5 ML FLUSH IVF PRN (16:00)
[2016-12-09] MEDS ORDERED: ONDANSETRON HCL 4 MG/2 ML VIAL IVP ONE (16:00)
[2016-12-09 16:23] LABS: AUTOMATED NEUTROPHIL # 6.3 TH/MM3 (1.8-7.7); BASOPHIL # 0.1 TH/MM3 (0-0.2); BASOPHIL % 0.8 % (0.0-2.0); EOSINOPHIL # 0.1 TH/MM3 (0-0.4); EOSINOPHIL % 1.3 % (0.0-4.0); HEMATOCRIT 37.6 % (39.0-51.0); HEMO FLAGS DIFF FINAL; LYMPH % 13.8 % (9.0-44.0); LYMPHOCYTE # 1.2 TH/MM3 (1.0-4.8); MEAN CELL VOLUME 84.1 FL (80.0-100.0); MEAN CORPUSCULAR HEMOGLOBIN 27.6 PG (27.0-34.0); MEAN CORPUSCULAR HGB CONC 32.8 % (32.0-36.0); MONO % 9.4 % (0.0-8.0); NEUT % 74.7 % (16.0-70.0); PLATELET COUNT 191 TH/MM3 (150-450); RED BLOOD COUNT 4.47 MIL/MM3 (4.50-5.90); RED CELL DISTRIBUTION WIDTH 16.4 % (11.6-17.2); WHITE BLOOD COUNT 8.4 TH/MM3 (4.0-11.0)
--- NOTE | 2016-12-09 16:27 | RADRPT ---
EXAM DATE/TIME: 12/09/2016 16:19 [facility] COMPARISON: No previous studies available for comparison. INDICATIONS : Right hip pain post fall today MEDICAL HISTORY : None. SURGICAL HISTORY : None. ENCOUNTER: Initial ACUITY: 1 day PAIN SCORE: 10/10 LOCATION: Right hip FINDINGS: Examination of the right hip was performed with AP Pelvis. Intertrochanteric fracture with mild displ acement right hip. The acetabulum is grossly intact. Mild degenerative changes left hip. CONCLUSION: Intertrochanteric fracture right hip. Parish Metcalf MD on December 09, 2016 at 16:25 Board Certified Radiologist. This report was verified electronically.
--- NOTE | 2016-12-09 16:27 | RADRPT ---
EXAM DATE/TIME: 12/09/2016 16:21 [facility] COMPARISON: CHEST SINGLE AP, May 07, 2016, 23:36. INDICATIONS : Trauma to chest post fall today MEDICAL HISTORY : None. SURGICAL HISTORY : Central line placement ENCOUNTER: Initial ACUITY: 1 day PAIN SCORE: 0/10 LOCATION: Bilateral chest FINDINGS: A single view of the chest demonstrates minimal left basilar density. Right-sided tunnel catheter wit h tip in the right atrium. No pneumothorax. The cardiomediastinal contours are unremarkable. Osseou s structures are intact. CONCLUSION: Minimal left basilar density likely atelectasis. Parish Metcalf MD on December 09, 2016 at 16:25 Board Certified Radiologist. This report was verified electronically.
[2016-12-09 16:32] LABS: APTT (PATIENT) 24.5 SEC (24.3-30.1); INTERNATIONAL NORMALIZED RATIO 0.9 RATIO; PROTHROMBIN TIME - PATIENT 10.1 SEC (9.8-11.6)
[2016-12-09] MEDS ORDERED: SODIUM CHLORIDE 0.9% FLUSH 5 ML FLUSH FLUSH PRN (16:45)
[2016-12-09] MEDS ORDERED: NALOXONE HCL 0.4 MG/ML AMP IV PRN (16:45)
[2016-12-09] MEDS ORDERED: ONDANSETRON HCL 4 MG/2 ML VIAL IVP PRN (16:45)
[2016-12-09 16:55] LABS: ALT (GPT) 19 U/L (12-78); ANION GAP 11 MEQ/L (5-15); AST (GOT) 14 U/L (15-37); BLOOD UREA NITROGEN 28 MG/DL (7-18); CHLORIDE 100 MEQ/L (98-107); GLOMERULAR FILTRATION RATE 18 ML/MIN (>89); POTASSIUM 4.2 MEQ/L (3.5-5.1); SODIUM (NA) 136 MEQ/L (136-145)
[2016-12-09 16:57] LABS: ALKALINE PHOSPHATASE 135 U/L (45-117); TOTAL BILIRUBIN ADULT 0.2 MG/DL (0.2-1.0)
[2016-12-09 17:11] VITALS: BP 124/62; PULSE 64; RESP 20; O2SAT 98
[2016-12-09] MEDS: LACTATED RINGER'S 1000 ML INJ 1,000 ML IV SCH (17:11)
--- NOTE | 2016-12-09 17:45 | HP.UPD ---
H&P Update Note This is an 86-year-old male with a right sided hip fracture which she sustained after a fall trying to bring the newspaper from his driveway. He has a history of diabetes and end-stage renal disease on dialysis on Tuesdays and Saturdays. He is admitted to [facility] with a consult orthopedics. He is nothing by mouth after midnight. His customer field representative is consulted. Full history and physical this to follow Frances Lowery MD Dec 09, 2016 17:43
[2016-12-09 19:22] VITALS: BP 165/84; PULSE 89; RESP 16; O2SAT 98
[2016-12-09] MEDS: MORPHINE SULFATE 4 MG/ML INJ IV PUSH PRN (19:37)
[2016-12-09 20:30] VITALS: BP 171/69; PULSE 77; RESP 17; TEMP 97.5; O2SAT 95
[2016-12-09] MEDS: INSULIN ASPART SUPPLEMENTAL SCALE SQ SCH (22:16)
[2016-12-09] MEDS: ATORVASTATIN 10 MG TAB PO SCH (22:29)
[2016-12-09] MEDS: guanFACINE HCL 1 MG TAB PO SCH (22:29)
[2016-12-09] MEDS: SODIUM CHLORIDE 0.9% FLUSH 5 ML FLUSH FLUSH SCH (22:29)
[2016-12-10] VITALS (7 sets, daily range): BP systolic 137–184; BP diastolic 63–77; PULSE 80–99; RESP 16–18; TEMP 96.2–98.6; O2SAT 93–95
[2016-12-10] MEDS: MORPHINE SULFATE 4 MG/ML INJ IV PUSH PRN (00:11)
[2016-12-10] MEDS ORDERED: VANCOMYCIN 500 MG VIAL ONE (06:25)
[2016-12-10] MEDS: INSULIN ASPART SUPPLEMENTAL SCALE SQ SCH ×4 (06:45→21:00)
[2016-12-10 07:05] LABS: AUTOMATED NEUTROPHIL # 8.8 TH/MM3 (1.8-7.7); BASOPHIL # 0.1 TH/MM3 (0-0.2); BASOPHIL % 0.6 % (0.0-2.0); EOSINOPHIL % 0.3 % (0.0-4.0); HEMATOCRIT 40.1 % (39.0-51.0); HEMO FLAGS DIFF FINAL; LYMPH % 10.7 % (9.0-44.0); LYMPHOCYTE # 1.2 TH/MM3 (1.0-4.8); MEAN CORPUSCULAR HEMOGLOBIN 26.7 PG (27.0-34.0); MEAN CORPUSCULAR HGB CONC 32.2 % (32.0-36.0); MONO % 8.8 % (0.0-8.0); NEUT % 79.6 % (16.0-70.0); PLATELET COUNT 133 TH/MM3 (150-450); RED BLOOD COUNT 4.83 MIL/MM3 (4.50-5.90); RED CELL DISTRIBUTION WIDTH 16.2 % (11.6-17.2)
[2016-12-10 07:10] LABS: WHITE BLOOD COUNT 11.1 TH/MM3 (4.0-11.0)
[2016-12-10] MEDS ORDERED: SUGAMMADEX SODIUM 200 MG/2 ML VIAL IV PUSH ONE ×2 (07:45)
[2016-12-10] MEDS ORDERED: ACETAMINOPHEN 1000 MG/100 ML VIAL IV ONE (08:33)
[2016-12-10] MEDS: SODIUM CHLORIDE 0.9% FLUSH 5 ML FLUSH FLUSH SCH ×2 (09:00→21:00)
[2016-12-10 09:41] LABS: POTASSIUM 4.5 MEQ/L (3.5-5.1)
[2016-12-10 09:42] LABS: BICARBONATE 26.2 MEQ/L (21.0-32.0)
--- NOTE | 2016-12-10 10:03 | PD.ORT.PN ---
Subjective Subjective Remarks no CP/SOB. no issues Objective Vitals Vital Signs Date Time Temp Pulse Resp B/P Pulse Ox O2 Delivery O2 Flow Rate FiO2 12/10/16 08:05 97.8 99 18 162/70 93 12/10/16 04:15 97.6 95 18 183/77 93 12/10/16 00:39 80 169/69 12/10/16 00:01 96.2 84 17 184/71 95 12/09/16 20:30 97.5 77 17 171/69 95 12/09/16 19:22 Room Air 12/09/16 19:22 89 16 165/84 98 Room Air 12/09/16 17:11 64 20 124/62 98 Room Air 12/09/16 17:07 18 12/09/16 15:45 97.9 76 18 128/61 98 I/O 12/09/16 12/09/16 12/09/16 12/10/16 12/10/16 12/10/16 07:00 15:00 23:00 07:00 15:00 23:00 Intake Total 340 ml 0 ml Output Total 25 ml Balance 315 ml 0 ml Intake Oral 340 ml 0 ml Output Urine Total 25 ml Bladder Scan Volume Amount 920 ml 610 ml # Voids 0 # Bowel Movements 0 0 Result Diagram: 12/10/16 0611 12/10/16 0833 Other Results Laboratory Tests Test 12/09/16 16:04 Prothrombin Time 10.1 SEC (9.8-11.6) Prothromb Time International 0.9 RATIO Ratio Imaging Last 24 hours Impressions Hip and Pelvis X-Ray 12/09/16 1550 Signed Impressions: Service Date/Time: Friday, December 09, 2016 16:19 - CONCLUSION: Intertrochanteric fracture right hip. Parish Metcalf MD Chest X-Ray 12/09/16 1550 Signed Impressions: Service Date/Time: Friday, December 09, 2016 16:21 - CONCLUSION: Minimal left basilar density likely atelectasis. Parish Metcalf MD Objective Remarks RLE: ext rotated leg, SILT distally, grossly nvi.+EHL/FHL Assessment & Plan Assessment and Plan HD 1- right hip IT fx Surgery cancelled today by anesthesia. patient with prior heart history and currently seeing a pupil personnel worker outpatient. Needs to be optimized cardia aquino. Dialysis today OR likely tomorrow or monday once cleared by cardiology José Luis Amanda Jr., MD Dec 10, 2016 10:03
--- NOTE | 2016-12-10 10:04 | PD.CONS ---
cc: José Luis Amanda Jr., MD HPI Service Orthopedic Surgeons Consult Requested By Primary Care Physician J Luis Moody M.D. Admission Diagnosis right intertrochanteric fracture, ESRD on HD Diagnoses: Chief Complaint: right hip fracture History of Present Illness 86-year-old male male with history of chronic kidney disease is admitted s/p fall with right hip pain and inability bear weight. X-ray taken the emergency department reveal displaced right intertrochanteric femur fracture. Patient reports he fell while taking out the trash. Denies any head injuries. Denies loss of consciousness. Currently patient's pain is 3 out of 10, exacerbated by any range of motion, relieved at rest and with IV pain medicine, pain is sharp nonradiating, not associated with any paresthesia and numbness to the right lower extremity. Patient is very active and a household ambulator.Patient lives independently and does not use any canes or walkers. She denies any chest pain or shortness of breath. The patient's primary physician is Dr. Moody and the patient's stone mason is Dr. Chaudhary. The patient denies any acute chest pain or shortness of breath. The patient does have a permacath in place as well as a right AV fistula, he states they now uses right AV fistula. Past Medical History Arthritis: Yes (right knee) Asthma: Yes ( A CHILD) Anxiety: No Cancer: No Cardiovascular Problems: No High Cholesterol: Yes Diabetes: Yes Diminished Hearing: Yes Endocrine: Yes Gastrointestinal Disorders: No Genitourinary: No Hepatitis: No Hiatal Hernia: No Hypertension: Yes Immune Disorder: No Musculoskeletal: Yes (OA) Neurologic: No Psychiatric: No Reproductive: No Respiratory: Yes (ASTHMA A CHILD) Thyroid Disease: No Past Surgical History Abdominal Surgery: Yes (hernia repair) AICD: No Genitourinary Surgery: Yes (TURP) Joint Replacement: No Pacemaker: No Other Surgery: Yes (INGUINAL HERNIA, HEMORRHOIDECTOMY) Social History Alcohol Use: No Tobacco Use: No Substance Use: No Allergies-Medications Allergies-Medications (Allergen,Severity, Reaction): Coded Allergies: Shellfish (Verified Allergy, Unknown, 10/14/16) Reported Meds & Prescriptions Reported Meds & Active Scripts Active Reported Humulin R Inj (Insulin Human Regular) 1,000 Unit/10 Ml Vial 6 Units SQ HS Tradjenta (Linagliptin) 5 Mg Tab 5 Mg PO DAILY Lipitor (Atorvastatin Calcium) 10 Mg Tab 10 Mg PO HS Norvasc (Amlodipine Besylate) 10 Mg Tab 10 Mg PO DAILY Tenex (Guanfacine HCl) 1 Mg Tab 1 Mg PO HS Do not crush, chew or divide tablet. Take with a meal. ROS Review of Systems HENT: No: Headaches, Neck Pain Cardiovascular: No: Chest Pain or Discomfort Respiratory: No: Shortness of Breath Gastrointestinal: No: Nausea, Vomiting, Abdominal Pain Genitourinary: Positive: Decreased Urinary Output (history of end-stage renal disease on dialysis) Musculoskeletal: Positive: Limited ROM, Pain Neurologic: No: Dizziness Past Family Social History Allergies: Coded Allergies: Shellfish (Verified Allergy, Unknown, 10/14/16) Active Ordered Medications Current Medications Medications (Trade) Dose Ordered Sig/Lakisha Route Start Time Stop Time Status Last Admin IV Flush 2 ml 2 ml UNSCH PRN IVF 12/09/16 16:00 (Lr 1000 ml Inj) 1,000 ml @ 50 mls/hr Q20H IV 12/09/16 16:44 12/09/16 17:11 (NS Flush) 2 ml UNSCH PRN FLUSH 12/09/16 16:45 (NS Flush) 2 ml BID FLUSH 12/09/16 21:00 12/09/16 22:29 (Zofran Inj) 4 mg Q6H PRN IVP 12/09/16 16:45 (Narcan Inj) 0.4 mg UNSCH PRN IV 12/09/16 16:45 (Morphine Inj) 2 mg Q3H PRN IV PUSH 12/09/16 17:00 12/10/16 00:11 (Norvasc) 10 mg DAILY PO 12/10/16 09:00 (Lipitor) 10 mg HS PO 12/09/16 21:00 (Tenex) 1 mg HS PO 12/09/16 21:00 12/09/16 22:29 Reported Meds & Active Scripts Active Reported Humulin R Inj (Insulin Human Regular) 1,000 Unit/10 Ml Vial 6 Units SQ HS Tradjenta (Linagliptin) 5 Mg Tab 5 Mg PO DAILY Lipitor (Atorvastatin Calcium) 10 Mg Tab 10 Mg PO HS Norvasc (Amlodipine Besylate) 10 Mg Tab 10 Mg PO DAILY Tenex (Guanfacine HCl) 1 Mg Tab 1 Mg PO HS Do not crush, chew or divide tablet. Take with a meal. Physical Exam Vital Signs Vital Signs Date Time Temp Pulse Resp B/P Pulse Ox O2 Delivery O2 Flow Rate FiO2 12/10/16 08:05 97.8 99 18 162/70 93 12/10/16 04:15 97.6 95 18 183/77 93 12/10/16 00:39 80 169/69 12/10/16 00:01 96.2 84 17 184/71 95 12/09/16 20:30 97.5 77 17 171/69 95 12/09/16 19:22 Room Air 12/09/16 19:22 89 16 165/84 98 Room Air 12/09/16 17:11 64 20 124/62 98 Room Air 12/09/16 17:07 18 12/09/16 15:45 97.9 76 18 128/61 98 Physical Exam Alert awake and oriented x 3. No acute distress. Head: NC/AT Neck: No pain with any range of motion and neck. No tenderness to palpation along posterior cervical elements. Negative Spurling. Pulmonary: Normal respiratory effort. Bilateral upper extremity: No deformities. Intact sensation distally in median , ulnar, and radial nerve. Intact motor in anterior interosseous, posterior interosseous, and ulnar nerve. 2+ radial artery pulses. Good cap refill. RIGHT lower extremity: Shortened and externally rotated. Intact sensation distally. Grossly neurovascularly intact. Positive logroll. +EHL/FHL, + PT/ DP pulses. Supple compartments. Negative Homans sign. LEFT lower extremity: Neurovascularly intact, +EHL/FHL, + PT/DP pulses. Supple compartments. Negative Homans sign. Laboratory Laboratory Tests Test 12/09/16 12/10/16 12/10/16 16:04 06:11 08:33 White Blood Count 8.4 11.1 Red Blood Count 4.47 4.83 Hemoglobin 12.3 12.9 Hematocrit 37.6 40.1 Mean Corpuscular Volume 84.1 83.0 Mean Corpuscular Hemoglobin 27.6 26.7 Mean Corpuscular Hemoglobin 32.8 32.2 Concent Red Cell Distribution Width 16.4 16.2 Platelet Count 191 133 Mean Platelet Volume 7.0 7.1 Neutrophils (%) (Auto) 74.7 79.6 Lymphocytes (%) (Auto) 13.8 10.7 Monocytes (%) (Auto) 9.4 8.8 Eosinophils (%) (Auto) 1.3 0.3 Basophils (%) (Auto) 0.8 0.6 Neutrophils # (Auto) 6.3 8.8 Lymphocytes # (Auto) 1.2 1.2 Monocytes # (Auto) 0.8 1.0 Eosinophils # (Auto) 0.1 0.0 Basophils # (Auto) 0.1 0.1 CBC Comment DIFF FINAL DIFF FINAL Differential Comment Prothrombin Time 10.1 Prothromb Time International 0.9 Ratio Activated Partial 24.5 Thromboplast Time Sodium Level 136 134 Potassium Level 4.2 4.5 Chloride Level 100 99 Carbon Dioxide Level 25.0 26.2 Anion Gap 11 9 Blood Urea Nitrogen 28 45 Creatinine 3.30 3.76 Estimat Glomerular Filtration 18 15 Rate Random Glucose 176 288 Calcium Level 8.3 7.9 Total Bilirubin 0.2 Aspartate Amino Transf 14 (AST/SGOT) Alanine Aminotransferase 19 (ALT/SGPT) Alkaline Phosphatase 135 Total Protein 7.6 Albumin 3.6 Blood Type A POSITIVE Antibody Screen NEGATIVE Result Diagram: 12/10/16 0611 12/10/16 0833 Imaging Last 72 hours Impressions Hip and Pelvis X-Ray 12/09/16 1550 Signed Impressions: Service Date/Time: Friday, December 09, 2016 16:19 - CONCLUSION: Intertrochanteric fracture right hip. Parish Metcalf MD Chest X-Ray 12/09/16 1550 Signed Impressions: Service Date/Time: Friday, December 09, 2016 16:21 - CONCLUSION: Minimal left basilar density likely atelectasis. Parish Metcalf MD Assessment & Plan Assessment and Plan 86-year-old male status post fall while taking out trash sustaining a displaced right intertrochanteric femur fracture. Patient has past medical history of heart disease, end-stage renal disease on dialysis. I recommend right hip intramedullary dominique fixation. I discussed my treatment plans with the patient, as well as risks, benefits and alternatives of surgical Intervention versus nonoperative treatment. In this case, the risks of operative intervention involves bleeding, infection, risks of damage to neurovascular structures, the risk of needing further surgery, posttraumatic arthritis and the risks involved with complication from anesthesia. We will proceed with the above procedure. The patient accepts these risks; understands and agrees with my recommendations. I also discussed my proposed postoperative care and follow-up plan. All questions were answered. Plan for OR []. Nothing by mouth []. Thanks for the consult, thanks for allowing me to participate in this patient's medical care. José Luis Amanda Jr., MD Dec 10, 2016 10:04
--- NOTE | 2016-12-10 13:41 | HHI.PR ---
Subjective Remarks 86yr old male seen and examined today. Anesthesia requested cardiac clearance prior to surgery so it was cancelled. Patient declined to have foleys in yesterday. Had urinary retention: 920ml per bladder scan. Now has a foleys in. No CP/SOB/NVD. in room. Objective Objective Results - Vital Signs Date Time Temp Pulse Resp B/P Pulse Ox O2 Delivery O2 Flow Rate FiO2 12/10/16 11:24 96.5 87 18 137/63 93 12/10/16 08:05 97.8 99 18 162/70 93 12/10/16 04:15 97.6 95 18 183/77 93 12/10/16 00:39 80 169/69 12/10/16 00:01 96.2 84 17 184/71 95 12/09/16 20:30 97.5 77 17 171/69 95 12/09/16 19:22 Room Air 12/09/16 19:22 89 16 165/84 98 Room Air 12/09/16 17:11 64 20 124/62 98 Room Air 12/09/16 17:07 18 12/09/16 15:45 97.9 76 18 128/61 98 I/O 12/09/16 12/09/16 12/09/16 12/10/16 12/10/16 12/10/16 07:00 15:00 23:00 07:00 15:00 23:00 Intake Total 340 ml 0 ml Output Total 25 ml Balance 315 ml 0 ml Intake Oral 340 ml 0 ml Output Urine Total 25 ml Bladder Scan Volume Amount 920 ml 610 ml # Voids 0 # Bowel Movements 0 0 Result Diagram: 12/10/16 0611 12/10/16 0833 Other Results Laboratory Tests Test 12/09/16 12/10/16 12/10/16 16:04 06:11 08:33 White Blood Count 8.4 11.1 Red Blood Count 4.47 4.83 Hemoglobin 12.3 12.9 Hematocrit 37.6 40.1 Mean Corpuscular Volume 84.1 83.0 Mean Corpuscular Hemoglobin 27.6 26.7 Mean Corpuscular Hemoglobin 32.8 32.2 Concent Red Cell Distribution Width 16.4 16.2 Platelet Count 191 133 Mean Platelet Volume 7.0 7.1 Neutrophils (%) (Auto) 74.7 79.6 Lymphocytes (%) (Auto) 13.8 10.7 Monocytes (%) (Auto) 9.4 8.8 Eosinophils (%) (Auto) 1.3 0.3 Basophils (%) (Auto) 0.8 0.6 Neutrophils # (Auto) 6.3 8.8 Lymphocytes # (Auto) 1.2 1.2 Monocytes # (Auto) 0.8 1.0 Eosinophils # (Auto) 0.1 0.0 Basophils # (Auto) 0.1 0.1 CBC Comment DIFF FINAL DIFF FINAL Differential Comment Prothrombin Time 10.1 Prothromb Time International 0.9 Ratio Activated Partial 24.5 Thromboplast Time Sodium Level 136 134 Potassium Level 4.2 4.5 Chloride Level 100 99 Carbon Dioxide Level 25.0 26.2 Anion Gap 11 9 Blood Urea Nitrogen 28 45 Creatinine 3.30 3.76 Estimat Glomerular Filtration 18 15 Rate Random Glucose 176 288 Calcium Level 8.3 7.9 Total Bilirubin 0.2 Aspartate Amino Transf 14 (AST/SGOT) Alanine Aminotransferase 19 (ALT/SGPT) Alkaline Phosphatase 135 Total Protein 7.6 Albumin 3.6 Blood Type A POSITIVE Antibody Screen NEGATIVE ROS General: No: Fatigue, Weakness, Other HEENT: No: Sore Throat, Dysphagia, Other Cardiac: No: Chest Pain, Edema, Palpitations, Other Pulmonary: No: Cough, SOB, Wheezing, Other GI: No: Abdominal Pain, BM, Diarrhea, N/V, 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 He is alert and awake, []. HEAD: Normocephalic without any lesion or mass noted. Facial features appear symmetric. EYES: Perrla, Normal eye movement, [] Icterus. [] Conj congestion. OROPHARYNGEAL: Oropharynx without erythema or edema. MOUTH/THROAT: Tongue midline []. Buccal mucosa is moist []. NECK: Supple. No nuchal rigidity or lymphadenopathy. Trachea midline without deviation. Thyroid not palpable, no bruits appreciated. CARDIAC: Regular rhythm, regular rate, S1 and S2 are heard. Murmur []; no gallops or rubs. LUNGS: Clear to auscultation bilaterally. [] wheeze, [] rhonchi or [] rale. No use of accessory muscles on inspiration or expiration. ABDOMEN: Soft, nontender, no organomegaly or masses. Bowel sounds are heard in all four quadrants. No rebound. No guarding. EXTREMITIES: [] edema. Pulses equal bilateral. [] cyanosis. NEUROLOGICAL: Patient mood and affect appropriate. Cranial nerves II through XII grossly intact. Muscle strength 5/5 in the upper and lower extremities bilaterally. Deep tendon reflexes are 2+ in the upper and lower extremities bilaterally. SKIN:Warm and moist PSYCH: Mood and affect appropriate Urinary Catheter: Yes Assessment to: Continue Crook insert reason: Surgical/Invasive Proced A/P Assessment and Plan Right hip fx DM-2 HTN Asthma CAD ESRD on dialysis Per anesthesia: Surgery cancelled today by anesthesia. patient with prior heart history and currently seeing a fuel cell binder outpatient. Needs to be optimized cardia aquino. Dialysis today, OR likely tomorrow or monday once cleared by cardiology Consult cardiology Start heart healthy diet for now. [facility] and Nephrology consulted. Due for dialysis today. Monitor BP closely and continue amlodipine. Monitor labs. Discussed with patient//RN. Tonya Cross MD Dec 10, 2016 13:41
[2016-12-10] MEDS ORDERED: SODIUM CHLOR 0.9% 1000 ML INJ 1,000 ML IV PRN ×3 (13:56)
[2016-12-10] MEDS ORDERED: ACETAMINOPHEN 325 MG TAB PO PRN (14:00)
[2016-12-10] MEDS ORDERED: cloNIDine HCL 0.1 MG TAB PO PRN (14:00)
[2016-12-10] MEDS ORDERED: SODIUM CHLORIDE 0.9% FLUSH 5 ML FLUSH IVF PRN (14:00)
[2016-12-10] MEDS ORDERED: MANNITOL 12.5 GM/50 ML VIAL IV PRN (14:00)
[2016-12-10] MEDS ORDERED: ONDANSETRON HCL 4 MG/2 ML VIAL IV PRN (14:00)
[2016-12-10] MEDS ORDERED: EPOETIN ALFA 10,000 UNITS/ML VIAL IV PRN (14:00)
[2016-12-10] MEDS ORDERED: HEPARIN SODIUM - IV 10,000 UNITS/10 ML VIAL IVF PRN (14:00)
[2016-12-10] MEDS ORDERED: GELATIN 12 MM/7 MM FOAM TOP PRN (14:00)
[2016-12-10] MEDS ORDERED: ALBUMIN HUMAN 25% 25 GM/100 ML BAGP IV PRN (14:00)
[2016-12-10] MEDS ORDERED: NITROGLYCERIN 0.4 MG SL 25 TABS/BTL SL PRN (14:00)
[2016-12-10] MEDS ORDERED: diphenhydrAMINE HCL 25 MG CAP PO PRN (14:00)
--- NOTE | 2016-12-10 15:01 | PD.CONS ---
HPI Service Nephrology Consult Requested By Dr. Lowery Reason for Consult ESRD Primary Care Physician J Luis Moody M.D. History of Present Illness 86 year old male with ESRD, DM, HTN on dialysis Monday, and Monday follows with Dr. Chaudhary , he has a fall and broke his right hip and await surgery , today is his regular day, he denies CP or sob, he has pain in his right leg and unable to bear weight, he has a PermCath and AVF right arm Review of Systems Constitutional: COMPLAINS OF: Fatigue Musculoskeletal: COMPLAINS OF: Joint pain, Muscle aches, Stiffness Neurologic: COMPLAINS OF: Abnormal gait Past Family Social History Allergies: Coded Allergies: Shellfish (Verified Allergy, Unknown, 10/14/16) Past Medical History Diabetes Hypertension ESRD Osteoarthritis Past Surgical History Hemorrhoidectomy Hernia repair TURP AVF Rt Reported Medications Reported Meds & Active Scripts Active Reported Humulin R Inj (Insulin Human Regular) 1,000 Unit/10 Ml Vial 6 Units SQ HS Tradjenta (Linagliptin) 5 Mg Tab 5 Mg PO DAILY Lipitor (Atorvastatin Calcium) 10 Mg Tab 10 Mg PO HS Norvasc (Amlodipine Besylate) 10 Mg Tab 10 Mg PO DAILY Tenex (Guanfacine HCl) 1 Mg Tab 1 Mg PO HS Do not crush, chew or divide tablet. Take with a meal. Active Ordered Medications Current Medications Medications (Trade) Dose Ordered Sig/Lakisha Route Start Time Stop Time Status Last Admin IV Flush 2 ml 2 ml UNSCH PRN IVF 12/09/16 16:00 (Lr 1000 ml Inj) 1,000 ml @ 50 mls/hr Q20H IV 12/09/16 16:44 12/09/16 17:11 (NS Flush) 2 ml UNSCH PRN FLUSH 12/09/16 16:45 (NS Flush) 2 ml BID FLUSH 12/09/16 21:00 12/09/16 22:29 (Zofran Inj) 4 mg Q6H PRN IVP 12/09/16 16:45 (Narcan Inj) 0.4 mg UNSCH PRN IV 12/09/16 16:45 (Morphine Inj) 2 mg Q3H PRN IV PUSH 12/09/16 17:00 12/10/16 00:11 (Norvasc) 10 mg DAILY PO 12/10/16 09:00 (Lipitor) 10 mg HS PO 12/09/16 21:00 Guanfacine HCl 1 mg 1 mg HS PO 12/09/16 21:00 12/09/16 22:29 (NS 1000 ml Inj) 1,000 ml @ 0 mls/hr Q0M PRN IV 12/10/16 13:56 Heparin Sodium (Porcine) 8000 units 8,000 units UNSCH PRN IVF 12/10/16 14:00 Sodium Chloride 1,000 ml @ 200 mls/hr Q5H PRN IV 12/10/16 13:56 (NS 1000 ml Inj) 1,000 ml @ 0 mls/hr Q0M PRN IV 12/10/16 13:56 (Mannitol Inj) 12.5 gm UNSCH PRN IV 12/10/16 14:00 (Albumin 25% Inj) 25 gm UNSCH PRN IV 12/10/16 14:00 (NS Flush) 5 ml UNSCH PRN IVF 12/10/16 14:00 (Zofran Inj) 4 mg UNSCH PRN IV 12/10/16 14:00 (Tylenol) 650 mg UNSCH PRN PO 12/10/16 14:00 (Benadryl) 25 mg UNSCH PRN PO 12/10/16 14:00 (Nitrostat Sl) 0.4 mg UNSCH PRN SL 12/10/16 14:00 (Catapres) 0.1 mg UNSCH PRN PO 12/10/16 14:00 (Epogen Inj) 2,000 units UNSCH PRN IV 12/10/16 14:00 (Gelfoam 12 Mm/7 Mm Top) 1 foam UNSCH PRN TOP 12/10/16 14:00 Family History noncontributory Social History denies smoking/ETOH Physical Exam Vital Signs Vital Signs Date Time Temp Pulse Resp B/P Pulse Ox O2 Delivery O2 Flow Rate FiO2 12/10/16 11:24 96.5 87 18 137/63 93 12/10/16 08:05 97.8 99 18 162/70 93 12/10/16 04:15 97.6 95 18 183/77 93 12/10/16 00:39 80 169/69 12/10/16 00:01 96.2 84 17 184/71 95 12/09/16 20:30 97.5 77 17 171/69 95 12/09/16 19:22 Room Air 12/09/16 19:22 89 16 165/84 98 Room Air 12/09/16 17:11 64 20 124/62 98 Room Air 12/09/16 17:07 18 12/09/16 15:45 97.9 76 18 128/61 98 Physical Exam GENERAL: Well-nourished, well-developed patient. SKIN: Warm and dry. HEAD: Normocephalic. EYES: No scleral icterus. No injection or drainage. NECK: Supple, trachea midline. No JVD or lymphadenopathy. CARDIOVASCULAR: Regular rate and rhythm without murmurs, gallops, or rubs. RESPIRATORY: Breath sounds equal bilaterally. No accessory muscle use. GASTROINTESTINAL: Abdomen soft, non-tender, nondistended. EXTREMITIES: No cyanosis, or edema. Rt leg tenderness NEUROLOGICAL: Awake, alert, and oriented x 3. Non-focal. Laboratory Laboratory Tests Test 12/09/16 12/10/16 12/10/16 16:04 06:11 08:33 White Blood Count 8.4 11.1 Red Blood Count 4.47 4.83 Hemoglobin 12.3 12.9 Hematocrit 37.6 40.1 Mean Corpuscular Volume 84.1 83.0 Mean Corpuscular Hemoglobin 27.6 26.7 Mean Corpuscular Hemoglobin 32.8 32.2 Concent Red Cell Distribution Width 16.4 16.2 Platelet Count 191 133 Mean Platelet Volume 7.0 7.1 Neutrophils (%) (Auto) 74.7 79.6 Lymphocytes (%) (Auto) 13.8 10.7 Monocytes (%) (Auto) 9.4 8.8 Eosinophils (%) (Auto) 1.3 0.3 Basophils (%) (Auto) 0.8 0.6 Neutrophils # (Auto) 6.3 8.8 Lymphocytes # (Auto) 1.2 1.2 Monocytes # (Auto) 0.8 1.0 Eosinophils # (Auto) 0.1 0.0 Basophils # (Auto) 0.1 0.1 CBC Comment DIFF FINAL DIFF FINAL Differential Comment Prothrombin Time 10.1 Prothromb Time International 0.9 Ratio Activated Partial 24.5 Thromboplast Time Sodium Level 136 134 Potassium Level 4.2 4.5 Chloride Level 100 99 Carbon Dioxide Level 25.0 26.2 Anion Gap 11 9 Blood Urea Nitrogen 28 45 Creatinine 3.30 3.76 Estimat Glomerular Filtration 18 15 Rate Random Glucose 176 288 Calcium Level 8.3 7.9 Total Bilirubin 0.2 Aspartate Amino Transf 14 (AST/SGOT) Alanine Aminotransferase 19 (ALT/SGPT) Alkaline Phosphatase 135 Total Protein 7.6 Albumin 3.6 Blood Type A POSITIVE Antibody Screen NEGATIVE Result Diagram: 12/10/16 0611 12/10/16 0833 Imaging Last Impressions Hip and Pelvis X-Ray 12/09/16 1550 Signed Impressions: Service Date/Time: Friday, December 09, 2016 16:19 - CONCLUSION: Intertrochanteric fracture right hip. Parish Metcalf MD Chest X-Ray 12/09/16 1550 Signed Impressions: Service Date/Time: Friday, December 09, 2016 16:21 - CONCLUSION: Minimal left basilar density likely atelectasis. Parish Metcalf MD Assessment and Plan Problem List: (1) ESRD (end stage renal disease) Plan: he is seen during dialysis tolerating it well UF 2 L Continue supportive care (2) Fracture, intertrochanteric, right femur Plan: need surgery (3) DM (diabetes mellitus) Plan: follow BG (4) HTN (hypertension) Plan: Monitor BP Problem Qualifiers (1) Fracture, intertrochanteric, right femur: Qualified Code: S72.141A - Fracture, intertrochanteric, right femur, closed, initial encounter (2) DM (diabetes mellitus): Inés Escalante MD Dec 10, 2016 15:01
[2016-12-10] MEDS ORDERED: GENTAMICIN SULFATE (DIALYSIS USE ONLY) 20 MG/2 ML VIAL IV PRN (15:45)
[2016-12-10] MEDS ORDERED: HEPARIN SODIUM - IV 10,000 UNITS/10 ML VIAL PRN (15:45)
[2016-12-10] MEDS ORDERED: METOPROLOL TARTRATE 25 MG TAB PO ONE (20:15)
--- NOTE | 2016-12-10 20:28 | MB ---
cc: NELLI CUEVAS M.D., MARK B. M.D. DENARD, ANTONY MD DATE OF CONSULTATION: 12/10/2016. REASON FOR CONSULTATION: Preoperative cardiac clearance for a right hip fracture surgery. HISTORY OF PRESENT ILLNESS: Mr. Daomn is a pleasant 86-year-old gentleman with history of "cardiac disease". He was established with Dr. Carcamo about two years ago who had done an echocardiogram on him. He never had a stress test. His is a retired psychiatrist and the history is obtained both from him and his at the bedside. He comes in after a fall and fracture to his right femur for which a consult was called for cardiac clearance. He denies chest pain or shortness of breath. Denies palpitations, dizziness or syncope. Denies orthopnea or PND. He has had chronic lower extremity edema since he was diagnosed with renal failure. He was started on hemodialysis in August of 2016. He said he had an AV fistula in the right arm. He has been having progressive dyspnea on exertion over the past one to two years. Denies claudications. ALLERGIES: THERE IS A QUESTIONABLE SHELLFISH ALLERGY ACCORDING TO THE NOTES BUT HE DENIED ANY ALLERGIES TO ME. PAST MEDICAL AND SURGICAL HISTORY: Includes that mentioned above. 1. History of diabetes [id number]. 2. Hypertension. 3. End-stage renal disease. 4. Hyperlipidemia. 5. Never a smoker. 6. No family history of coronary artery disease at a premature age. 7. History of osteoarthritis. 8. Status post hemorrhoidectomy. 9. Hernia repair. 10. Transurethral resection of prostate. 11. AV fistula on the right arm. MEDICATIONS AT HOME: 1. Norvasc 10 milligrams p.o. daily. 2. Tenex 1 milligram p.o. at bedtime. 3. Lipitor 10 milligrams p.o. at bedtime. 4. Tradjenta 5 milligrams p.o. daily. 5. Humulin R insulin. FAMILY HISTORY: Family history is negative for coronary artery disease, cancer, diabetes or hypertension. SOCIAL HISTORY: Denies smoking, EtOH abuse or recreational drug use. He is and lives with his who is a retired psychiatrist REVIEW OF SYSTEMS: 12-point system review was unremarkable except he started having some dyspnea on exertion about one to two years ago according to the . PHYSICAL EXAMINATION: GENERAL: On physical exam, an 86-year-old gentleman lying in bed in no apparent distress. Alert and oriented to place and time. He knew the year. Oriented to person. VITAL SIGNS: Blood pressure is 137/63, it was higher before at 183/77 mmHg. Pulse is 88 beats per minute and regular. Respirations at 16 to 18 per minute. Afebrile. HEAD, EYES, EARS, NOSE, THROAT: Head is normocephalic. Pupils are equal and reactive. Throat is within normal limits. NECK: The neck is supple. No carotid bruits. No thyromegaly. No jugular venous distention noted. LUNGS: A few crepitations at the bases, otherwise clear to auscultation and percussion. CARDIOVASCULAR: S1 and S2 are muffled with a faint S4 gallop. There is a 3/6 systolic ejection murmur at the right second intercostal space. A pansystolic murmur that appears to be 2/6 noted at the apex with some radiation to the axilla. ABDOMEN: Lax and nontender. Normoactive bowel sounds. No organomegaly. No masses felt. EXTREMITIES: Right trochanteric fracture. Trace ankle edema bilaterally. PULSES: 2+ bilaterally. Dorsalis pedis pulse on the right is 1+. RECTAL: Exam deferred. NEUROLOGIC: Grossly intact. LABORATORY DATA: Laboratories showed white count of 11.1 today, hemoglobin 12.9 and a platelet count of 133,000. BUN of 45, creatinine 3.76, sodium 134, potassium 4.5. Lipid panel in October showed an LDL of 81, HDL of 83 and triglycerides of 90. IMAGING STUDIES: Chest x-ray showed basilar atelectasis The lung VQ scan showed low probability for PE and lower extremity venous Doppler ultrasound showed no DVT. Hip x-rays showing right trochanteric hip fracture. EKGS: There is no EKG a done on this admission. He had an EKG on October 17 of this and apparently this is not a full 12-lead EKG. It is a tracing from telemetry with some leads on it. It showed sinus rhythm with no acute ischemic changes and an interventricular conduction defect. ASSESSMENT AND RECOMMENDATIONS: 1. Preoperative cardiac risk clearance for upcoming right hip fracture surgery with evidence of significant systolic ejection murmur suggestive of likely significant aortic stenosis with some degree of mitral regurgitation as well. It was difficult to perform the Valsalva maneuver with him and there was not significant change in the murmur. He will need to have an echocardiogram first thing in the morning and this will be reviewed. With significant valvular heart disease, he would be at high risk in his age for general anesthesia with orthopedic surgery and we will try to optimize his medications prior to that. He was started on beta-blockers because his heart rate is somewhat on the high side and would continue him on his home statin. Will cut down his Norvasc to allow introducing a beta-judy. Further recommendations will follow once we have the echocardiogram. I do not have access at the present time to what Dr. Carcamo did, but apparently he has not had any studies according to the , at least for the last year and a half. I thank you for the consultation. MD RADHA Hall/JCKvng /7:43 PM /8:10 PM
[2016-12-10] MEDS: guanFACINE HCL 1 MG TAB PO SCH (21:00)
[2016-12-10] MEDS: ATORVASTATIN 10 MG TAB PO SCH (21:00)
[2016-12-10] MEDS: LACTATED RINGER'S 1000 ML INJ 1,000 ML IV SCH (21:00)
[2016-12-10] MEDS: METOPROLOL TARTRATE 25 MG TAB PO SCH (21:00)
[2016-12-11] VITALS: BP 135/78; PULSE 86; RESP 16; TEMP 98.1; O2SAT 97
[2016-12-11 04:04] VITALS: BP 143/62; PULSE 71; RESP 20; TEMP 98.6; O2SAT 94
[2016-12-11] MEDS: INSULIN ASPART SUPPLEMENTAL SCALE SQ SCH ×4 (05:39→21:00)
[2016-12-11 07:33] LABS: HEMATOCRIT 33.5 % (39.0-51.0); MEAN CELL VOLUME 83.8 FL (80.0-100.0); MEAN CORPUSCULAR HEMOGLOBIN 26.8 PG (27.0-34.0); PLATELET COUNT 98 TH/MM3 (150-450); RED CELL DISTRIBUTION WIDTH 16.2 % (11.6-17.2)
[2016-12-11 07:34] LABS: WHITE BLOOD COUNT 10.3 TH/MM3 (4.0-11.0)
[2016-12-11 07:35] LABS: REVIEW FLAG FINAL
[2016-12-11 08:00] VITALS: BP 158/63; PULSE 76; RESP 18; TEMP 96; O2SAT 95
[2016-12-11] MEDS ORDERED: PROPOFOL 200 MG/20 ML AMP IV ONE (08:06)
[2016-12-11] MEDS ORDERED: ONDANSETRON HCL 4 MG/2 ML VIAL IV PUSH ONE (08:06)
[2016-12-11 08:13] LABS: BICARBONATE 30.2 MEQ/L (21.0-32.0); MAGNESIUM 1.8 MG/DL (1.5-2.5); POTASSIUM 4.8 MEQ/L (3.5-5.1)
[2016-12-11 09:11] VITALS: O2SAT 95
[2016-12-11] MEDS: METOPROLOL TARTRATE 25 MG TAB PO SCH ×2 (09:29→21:00)
[2016-12-11] MEDS: SODIUM CHLORIDE 0.9% FLUSH 5 ML FLUSH FLUSH SCH (09:29)
[2016-12-11] MEDS: amLODIPine BESYLATE 5 MG TAB PO SCH (09:29)
[2016-12-11 12:00] VITALS: BP 152/68; PULSE 81; RESP 18; TEMP 97.9; O2SAT 95
--- NOTE | 2016-12-11 14:33 | EC ---
Study Study Date:12/11/2016 STUDY CONCLUSIONS SUMMARY - Left ventricle: The cavity size was normal. There was mild focal basal hypertrophy of the septum. Systolic function was normal. The estimated ejection fraction was in the range of 55% to 60%. Wall motion was normal; there were no regional wall motion abnormalities. - Aortic valve: Transvalvular velocity was increased. There was very mild stenosis. Valve area: 1.24cm^2(VTI). Valve area: 0.98cm^2 (Vmax). - Mitral valve: Mild regurgitation. - Tricuspid valve: Mild regurgitation. - Pulmonary arteries: Systolic pressure was mildly increased. PA peak pressure: 47mm Hg (S). If LV function is below 40, please consider prescribing an ACEI or ARB or document rationale for non-use. PROCEDURE DATA STUDY STATUS: Elective. Procedure: Transthoracic echocardiography. Image quality was fair. Scanning was performed from the parasternal, apical, and subcostal acoustic windows. Study completion: The patient tolerated the procedure well. Transthoracic echocardiography. M-mode, complete 2D, complete spectral Doppler, and color Doppler. Patient status: Inpatient. CARDIAC ANATOMY LEFT VENTRICLE: The cavity size was normal. There was mild focal basal hypertrophy of the septum. Systolic function was normal. The estimated ejection fraction was in the range of 55% to 60%. Wall motion was normal; there were no regional wall motion abnormalities. AORTIC VALVE: Poorly visualized. Trileaflet; normal thickness leaflets. Doppler: Transvalvular velocity was increased. There was very mild stenosis. No regurgitation. Valve area: 1.24cm^2(VTI). Valve area: 0.98cm^2 (Vmax). Mean gradient: 13mm Hg (S). Peak gradient: 26mm Hg (S). AORTA: Aortic root: The aortic root was normal in size. MITRAL VALVE: Structurally normal valve. Doppler: Transvalvular velocity was within the normal range. There was no evidence for stenosis. Mild regurgitation. LEFT ATRIUM: The atrium was normal in size. RIGHT VENTRICLE: The cavity size was normal. Wall thickness was normal. PULMONIC VALVE: Doppler: Transvalvular velocity was within the normal range. There was no evidence for stenosis. No regurgitation. TRICUSPID VALVE: Structurally normal valve. Doppler: Transvalvular velocity was within the normal range. Mild regurgitation. PULMONARY ARTERY: The main pulmonary artery was normal-sized. Systolic pressure was mildly increased. RIGHT ATRIUM: The atrium was normal in size. PERICARDIUM: There was no pericardial effusion. SYSTEMIC VEINS: Inferior vena cava: The vessel was normal in size. BASIC MEASUREMENTS ADULT Normal Left ventricle LV internal dimension, ED, chordal level, *34.9 mm 43-52 PLAX LV internal dimension, ES, chordal level, 25 mm 23-38 PLAX Fractional shortening, chordal level, PLAX *28 % >29 LV posterior wall thickness, ED 10.4 mm IVS/LVPW ratio, ED *1.36 <1.3 Ventricular septum Septal thickness, ED 14.1 mm Aortic valve Leaflet separation *11 mm 15-26 Right ventricle RV internal dimension, ED, PLAX 26.1 mm 19-38 BASIC MEASUREMENTS ADULT Normal Aortic valve Leaflet separation *11 mm 15-26 Aorta Root diameter, ED 35 mm 20-37 Left atrium Anterior-posterior dimension, ES 27 mm 19-40 LA/aortic root ratio 0.77 DOPPLER MEASUREMENTS ADULT Normal Main pulmonary artery Pressure, S *47 mm Hg =30 Aortic valve Peak velocity, S 256 cm/s Mean velocity, S 168 cm/s VTI, S 51.7 cm Mean gradient, S 13 mm Hg Peak gradient, S 26 mm Hg Valve area, VTI 1.24 cm^2 Valve area, Vmax 0.98 cm^2 Mitral valve Peak E-wave velocity 70.6 cm/s Peak A-wave velocity 112 cm/s Peak E/A ratio 0.6 Tricuspid valve Regurgitant peak velocity 303 cm/s Peak RV-RA gradient, S 37 mm Hg Maximal regurgitant velocity 303 cm/s Systemic veins Estimated CVP 10 mm Hg Right ventricle RV pressure, S *47 mm Hg <30 LEGEND: Mean values are shown as u=mean value. Asterisk (*) thompson values outside specified normal range. Prepared and signed by Deya Silvestre [id number]
[2016-12-11] MEDS ORDERED: GENTAMICIN SULFATE 80 MG/2 ML VIAL ONE (14:36)
--- NOTE | 2016-12-11 14:41 | EKG ---
Date Performed: 12/10/2016 Time Performed: 20:22:03 PTAGE: 86 years EKG: Sinus rhythm RIGHT BUNDLE BRANCH BLOCK LEFT ANTERIOR FASCICULAR BLOCK ABNORMAL ECG Compared to prior tracing no s ignificant change PREVIOUS TRACING : 10/14/2016 12.58 DOCTOR: Sarbjit Richter Interpretating Date/Time 12/11/2016 14:38:55
[2016-12-11] MEDS ORDERED: VANCOMYCIN HCL 1000 MG VIAL ONE (15:18)
--- NOTE | 2016-12-11 15:25 | HHI.PR ---
Subjective Remarks 86yr old male seen and examined today. Anesthesia requested cardiac clearance prior to surgery. No CP/SOB/NVD. in room. Seen by Dr. Sanchez. Plan for 2D echo tomorrow in am. Objective Objective Results - Vital Signs Date Time Temp Pulse Resp B/P Pulse Ox O2 Delivery O2 Flow Rate FiO2 12/11/16 09:11 95 21 12/11/16 08:00 96.0 76 18 158/63 95 12/11/16 04:04 98.6 71 20 143/62 94 12/11/16 00:00 98.1 86 16 135/78 97 12/10/16 20:47 94 21 12/10/16 20:00 98.6 89 16 142/67 95 I/O 12/10/16 12/10/16 12/10/16 12/11/16 12/11/16 12/11/16 07:00 15:00 23:00 07:00 15:00 23:00 Intake Total 0 ml 240 ml 480 ml 0 ml Output Total 650 ml 200 ml Balance 0 ml 240 ml -170 ml -200 ml Intake Oral 0 ml 240 ml 480 ml 0 ml Output Urine Total 650 ml 200 ml Bladder Scan Volume Amount 610 ml # Voids 0 1 # Bowel Movements 0 Result Diagram: 12/11/16 0705 12/11/16 0705 Other Results Laboratory Tests Test 12/11/16 07:05 White Blood Count 10.3 Red Blood Count 4.00 Hemoglobin 10.7 Hematocrit 33.5 Mean Corpuscular Volume 83.8 Mean Corpuscular Hemoglobin 26.8 Mean Corpuscular Hemoglobin 32.0 Concent Red Cell Distribution Width 16.2 Platelet Count 98 Mean Platelet Volume 7.0 Sodium Level 139 Potassium Level 4.8 Chloride Level 100 Carbon Dioxide Level 30.2 Anion Gap 9 Blood Urea Nitrogen 39 Creatinine 2.97 Estimat Glomerular Filtration 20 Rate Random Glucose 214 Calcium Level 7.7 Magnesium Level 1.8 Thyroid Stimulating Hormone 0.440 3rd Gen ROS General: No: Fatigue, Weakness, Other HEENT: No: Sore Throat, Dysphagia, Other Cardiac: No: Chest Pain, Edema, Palpitations, Other Pulmonary: No: Cough, SOB, Wheezing, Other GI: No: Abdominal Pain, BM, Diarrhea, N/V, 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 He is alert and awake. HEAD: Normocephalic without any lesion or mass noted. Facial features appear symmetric. EYES: Perrla, Normal eye movement, No icterus. OROPHARYNGEAL: Oropharynx without erythema or edema. MOUTH/THROAT: Buccal mucosa is moist NECK: Supple. No nuchal rigidity or lymphadenopathy. CARDIAC: Regular rhythm, regular rate, S1 and S2 are heard. 2/6 TELLY. LUNGS: Clear to auscultation bilaterally. ABDOMEN: Soft, nontender, no organomegaly or masses. Bowel sounds are heard in all four quadrants. No rebound. No guarding. EXTREMITIES: Tenderness over right hip. NEUROLOGICAL: No focal deficits. SKIN:Warm and moist PSYCH: Mood and affect appropriate A/P Assessment and Plan Assessment: Right hip fx DM-2 HTN Asthma CAD ESRD on dialysis Cardiac murmur. Plan: Per anesthesia: Patient needs cardiac clearance. Appreciate cardiology consult. 2D echo ordered. Started on beta judy. Heart healthy diet for now. [facility] and Nephrology consulted. Dialysis per nephrology. Monitor BP closely. Amlodipine dose reduced as metoprolol has been initiated. Monitor labs. Discussed with patient//RN. Tonya Cross MD Dec 11, 2016 15:25 Discussed with patient//RN. Tonya Cross MD Dec 11, 2016 15:25
[2016-12-11 16:00] VITALS: BP 152/61; PULSE 80; RESP 18; TEMP 96.3; O2SAT 93
[2016-12-11] MEDS ORDERED: SODIUM CHLOR 0.9% 1000 ML INJ 1,000 ML IV SCH (16:30)
--- NOTE | 2016-12-11 16:32 | HHI.NPPN ---
Subjective History of Present Illness 86 Year old with Hip fracture, ESRD Review of Systems Musculoskeletal MS: Pain/Stiffness Objective Data Data 12/10/16 12/11/16 19:00 07:00 Intake Total 240 ml 480 ml Output Total 850 ml Balance 240 ml -370 ml Intake Oral 240 ml 480 ml Output Urine Total 850 ml Bladder Scan Volume Amount 610 ml # Voids 1 Vital Signs Date Time Temp Pulse Resp B/P Pulse Ox O2 Delivery O2 Flow Rate FiO2 12/11/16 09:11 95 21 12/11/16 08:00 96.0 76 18 158/63 95 12/11/16 04:04 98.6 71 20 143/62 94 12/11/16 00:00 98.1 86 16 135/78 97 12/10/16 20:47 94 21 12/10/16 20:00 98.6 89 16 142/67 95 -: 12/11/16 0705 12/11/16 0705 Physical Exam General Appearance: Well Developed, Well Nourished Neck Neck Exam: Neck Supple Pulmonary Resp Exam: Clear Bilaterally, Breath Sounds Equal Cardiology CV Exam: Regular, Normal Sinus Rhythm Gastrointestinal/Abdomen GI Exam: Soft, Non-Tender, Bowel Sounds Present Extremeties Extremities Exam: Trace Edema Assessment/Plan Problem List: (1) ESRD (end stage renal disease) Plan: he has hemodialysis done 1 L uf tolerated it he is refusing BG check this am was [address] Mancini can follow (2) Fracture, intertrochanteric, right femur Plan: need surgery (3) DM (diabetes mellitus) Plan: follow BG (4) HTN (hypertension) Plan: Monitor BP Problem Qualifiers (1) Fracture, intertrochanteric, right femur: Qualified Code: S72.141A - Fracture, intertrochanteric, right femur, closed, initial encounter (2) DM (diabetes mellitus): Inés Escalante MD Dec 11, 2016 16:32
--- NOTE | 2016-12-11 17:27 | PD.ORT.PN ---
Subjective Subjective Remarks no CP/SOB. no issues Objective Vitals Vital Signs Date Time Temp Pulse Resp B/P Pulse Ox O2 Delivery O2 Flow Rate FiO2 12/11/16 09:11 95 21 12/11/16 08:00 96.0 76 18 158/63 95 12/11/16 04:04 98.6 71 20 143/62 94 12/11/16 00:00 98.1 86 16 135/78 97 12/10/16 20:47 94 21 12/10/16 20:00 98.6 89 16 142/67 95 I/O 12/10/16 12/10/16 12/10/16 12/11/16 12/11/16 12/11/16 07:00 15:00 23:00 07:00 15:00 23:00 Intake Total 0 ml 240 ml 480 ml 0 ml Output Total 650 ml 200 ml Balance 0 ml 240 ml -170 ml -200 ml Intake Oral 0 ml 240 ml 480 ml 0 ml Output Urine Total 650 ml 200 ml Bladder Scan Volume Amount 610 ml # Voids 0 1 # Bowel Movements 0 Result Diagram: 12/11/16 0705 12/11/16 0705 Imaging Last 24 hours Impressions Hip and Pelvis X-Ray 12/09/16 1550 Signed Impressions: Service Date/Time: Friday, December 09, 2016 16:19 - CONCLUSION: Intertrochanteric fracture right hip. Parish Metcalf MD Chest X-Ray 12/09/16 1550 Signed Impressions: Service Date/Time: Friday, December 09, 2016 16:21 - CONCLUSION: Minimal left basilar density likely atelectasis. Parish Metcalf MD Objective Remarks RLE: ext rotated leg, SILT distally, grossly nvi.+EHL/FHL Assessment & Plan Assessment and Plan Right IT femur fx -Sx postponed. patient ate today twice despite NPO orders -OR likely this evening -NPO José Luis Amanda Jr., MD Dec 11, 2016 17:27
[2016-12-11] MEDS ORDERED: SUGAMMADEX SODIUM 200 MG/2 ML VIAL IV PUSH ONE ×2 (20:31)
[2016-12-11] MEDS ORDERED: fentaNYL CITRATE 250 MCG/5 ML AMP ONE (20:31)
[2016-12-11] MEDS: ATORVASTATIN 10 MG TAB PO SCH (21:00)
[2016-12-11] MEDS: guanFACINE HCL 1 MG TAB PO SCH (21:00)
--- NOTE | 2016-12-11 21:39 | PD.OP ---
cc: José Luis Amanda Jr., MD Operative Report Date of Surgery: Dec 11, 2016 Preoperative Diagnosis: Right intertrochanteric femur fracture Postoperative Diagnosis: Same Procedure: Right hip intramedullary dominique fixation Anesthesia: Gen. Surgeon: José Luis Amanda Brick Baker(s): Staff Resident Surgeon: None Operation and Findings: Estimated blood loss: Minimal The patient received intravenous vancomycin. After the appropriate anesthesia was administered, and the patient was transferred to the fracture table. The fracture was anatomically reduced under fluoroscopic imaging. The hip was prepped and draped in usual sterile fashion. We made incision just proximal to the tip of the greater trochanter. We dissected down through the deep fascia. We used a threaded guidewire at the tip of the greater trochanter which was placed down to the metaphyseal region on both the AP and lateral views. We reamed proximally. Using fluoroscopic analysis we templated the appropriate size for the short nail. This nail was then placed into position under fluoroscopic guidance. We made incision laterally based on the position of the associated jig. We then placed a threaded guidewire into the center, center of the femoral head. The appropriate length for the helical blade was measured. We drilled laterally and then step reamed the femoral neck and femoral head region. The helical blade was placed into position. We then tightened the proximal set screw, which was followed by releasing one turn off of the screw to allow for compression. Traction was released from the leg and then manual compression was performed. The nail was secured distally with a single screw off of the jig using fluoroscopic guidance. We took final fluoroscopic imaging which revealed that the fracture was in very good position. The hardware was in good position as well. The wounds were thoroughly irrigated and then closed with a 0 Vicryl followed by 2-0 Vicryl and sony. The postoperative plan is to start 50% weightbearing. Additionally, we will initiate postoperative antibiotics for 24 hours along with DVT prophylaxis consisting of early mobilization, SCDs, compression stockings, and Lovenox. IMPLANTS USED Synthes short trochanteric nail, size: POSTP-OP PLAN OF ACTIVITY Antibiotics: vancomycin Antiocoagulation: Lovenox Weight bearing status: 50% Dressing: Change daily, by RN starting postop day 3 Dispo: expected discharge 2 days. likely in patient rehab José Luis Amanda Jr., MD Dec 11, 2016 21:39
[2016-12-11] MEDS ORDERED: NORC5TAB PO (21:43)
[2016-12-11] MEDS ORDERED: ACETAMINOPHEN/HYDROcodone 325 MG/5 MG TAB PO PRN (21:45)
[2016-12-11] MEDS ORDERED: PROMETHAZINE HCL 25 MG TAB PO PRN (21:45)
[2016-12-11] MEDS ORDERED: Post-op Orders (for Pharmacy) MISC XX ONE (21:45)
[2016-12-11] MEDS ORDERED: ONDANSETRON HCL 4 MG/2 ML VIAL IVP PRN (21:45)
[2016-12-11] MEDS ORDERED: MORPHINE SULFATE 8 MG/ML INJ IV PUSH PRN (21:45)
[2016-12-11] MEDS ORDERED: ZOLPIDEM TARTRATE 5 MG TAB PO PRN (21:45)
[2016-12-11] MEDS ORDERED: ACETAMINOPHEN 325 MG TAB PO PRN (21:45)
[2016-12-11] MEDS ORDERED: SODIUM CHLORIDE 0.9% FLUSH 5 ML FLUSH IVF PRN (21:45)
--- NOTE | 2016-12-11 22:17 | RADRPT ---
EXAM DATE/TIME: 12/11/2016 21:30 [facility] COMPARISON: HIP RIGHT (AP&LAT 2/3VWS) W AP PELVIS, December 09, 2016, 16:19. INDICATIONS : Open reduction right hip. MEDICAL HISTORY : None. SURGICAL HISTORY : None. ENCOUNTER: Subsequent ACUITY: 2 days PAIN SCORE: Non-responsive. LOCATION: Right lateral FINDINGS: 4 spot intraoperative fluoroscopic views of the right hip demonstrate antegrade intramedullary dominique an d femoral neck fixation screw across the trochanteric fracture with good alignment at the fracture si te. Distal interlocking screws noted. CONCLUSION: Postoperative changes are noted as above. Deniz Morrissey MD on December 11, 2016 at 22:15 Board Certified Radiologist. This report was verified electronically.
[2016-12-11] MEDS ORDERED: DO NOT ADM ANY ANTICOAGULANT DRUGS XX PRN (22:30)
[2016-12-11] MEDS: MORPHINE SULFATE 4 MG/ML INJ IV PUSH PRN (23:42)
[2016-12-12] VITALS (7 sets, daily range): BP systolic 155–180; BP diastolic 62–66; PULSE 68–85; RESP 17–20; TEMP 95.5–99.2; O2SAT 94–98
[2016-12-12] MEDS: MORPHINE SULFATE 4 MG/ML INJ IV PUSH PRN (05:04)
[2016-12-12] MEDS: INSULIN ASPART SUPPLEMENTAL SCALE SQ SCH ×5 (07:00→19:47)
[2016-12-12 07:55] LABS: HEMATOCRIT 31.3 % (39.0-51.0); MEAN CELL VOLUME 85.6 FL (80.0-100.0); MEAN CORPUSCULAR HGB CONC 31.5 % (32.0-36.0); PLATELET COUNT 147 TH/MM3 (150-450); RED BLOOD COUNT 3.65 MIL/MM3 (4.50-5.90); RED CELL DISTRIBUTION WIDTH 16.1 % (11.6-17.2); REVIEW FLAG FINAL; WHITE BLOOD COUNT 8.6 TH/MM3 (4.0-11.0)
--- NOTE | 2016-12-12 08:13 | PD.CARD.PN ---
Subjective Subjective Remarks Doing well POD #1, No CP, SOB. Denies any syncopy prior to event. Objective Medications Current Medications Medications (Trade) Dose Ordered Sig/Lakisha Route PRN Reason Start Time Stop Time Status Last Admin Dose Admin Ondansetron HCl (Zofran Inj) 4 mg Q6H PRN IVP NAUSEA OR VOMITING 12/09/16 16:45 Naloxone HCl (Narcan Inj) 0.4 mg UNSCH PRN IV SEE LABEL COMMENTS 12/09/16 16:45 Morphine Sulfate (Morphine Inj) 2 mg Q3H PRN IV PUSH pain 2 to 10 12/09/16 17:00 12/12/16 05:04 Atorvastatin Calcium (Lipitor) 10 mg HS PO 12/09/16 21:00 Guanfacine HCl (Tenex) 1 mg HS PO 12/09/16 21:00 12/09/16 22:29 Heparin Sodium (Porcine) (Heparin Inj) UNSCH PRN .XX WITH DIALYSIS 12/10/16 15:45 Gentamicin Sulfate (Gentamicin (Dialysis) Inj) 20 mg UNSCH PRN IV WITH DIALYSIS 12/10/16 15:45 Amlodipine Besylate (Norvasc) 5 mg DAILY PO 12/11/16 09:00 12/11/16 09:29 Metoprolol Tartrate 25 mg 25 mg BID PO 12/10/16 21:00 12/11/16 09:29 Sodium Chloride (NS 1000 ml Inj) 1,000 ml @ 42 mls/hr [id number] IV 12/11/16 16:30 IV Flush (NS Flush) 2 ml UNSCH PRN IVF FLUSH AFTER USING IV ACCESS 12/11/16 21:45 IV Flush 2 ml 2 ml BID IVF 12/12/16 09:00 Vancomycin HCl/ Sodium Chloride (Vancomycin Inj/ NS 250 ml Inj) 250 ml @ 250 mls/hr Q12H IV 12/12/16 09:00 12/12/16 21:59 Enoxaparin Sodium (Lovenox Inj) 30 mg Q12H SQ 12/12/16 09:00 Morphine Sulfate (Morphine Inj) 5 mg Q3H PRN IV PUSH 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 12/11/16 21:45 Acetaminophen/ Hydrocodone Bitart ([place] 5-325 Mg) 1 tab Q4H PRN PO PAIN LESS THAN 5 ON SCALE 12/11/16 21:45 Acetaminophen/ Hydrocodone Bitart ([place] 5-325 Mg) 2 tab Q4H PRN PO PAIN SCALE 5 TO 10 12/11/16 21:45 Acetaminophen (Tylenol) 650 mg Q6H PRN PO PAIN LESS THAN 5 ON SCALE 12/11/16 21:45 Promethazine HCl (Phenergan) 25 mg Q4H PRN PO NAUSEA OR VOMITING 12/11/16 21:45 Multivitamins/ Minerals Therapeutic (Theragran M Tab) 1 tab BID PO 12/13/16 09:00 02/11/17 08:59 Ondansetron HCl (Zofran Inj) 4 mg Q6H PRN IVP NAUSEA OR VOMITING 12/11/16 21:45 Zolpidem Tartrate (Ambien) 5 mg HS PRN PO SLEEP 12/11/16 21:45 Miscellaneous Information ALL NURSING DEPARTME... UNSCH PRN XX SEE LABEL COMMENTS 12/11/16 22:30 12/12/16 22:29 Vital Signs / I&O Vital Signs Date Time Temp Pulse Resp B/P Pulse Ox O2 Delivery O2 Flow Rate FiO2 12/12/16 04:00 98.8 85 20 155/65 94 12/12/16 02:20 21 12/12/16 00:00 99.2 84 18 165/65 98 12/11/16 22:45 97.5 78 16 169/67 97 Nasal Cannula 3 12/11/16 22:30 75 14 172/70 98 Nasal Cannula 3 12/11/16 22:15 66 16 165/71 99 Nasal Cannula 3 12/11/16 22:00 68 12 129/55 97 Nasal Cannula 3 12/11/16 21:56 98.2 83 12 118/52 97 Nasal Cannula 3 12/11/16 20:15 82 11 155/66 97 12/11/16 20:00 83 12 176/66 97 12/11/16 19:55 99.1 84 10 177/74 88 12/11/16 19:55 88 Nasal Cannula 3 12/11/16 16:00 96.3 80 18 152/61 93 12/11/16 12:00 97.9 81 18 152/68 95 12/11/16 09:11 95 21 I/O 12/11/16 12/11/16 12/11/16 12/12/16 12/12/1612/12/17 07:00 15:00 23:00 07:00 15:00 23:00 Intake Total 0 ml 240 ml 225 ml 477 ml Output Total 200 ml 400 ml 225 ml 500 ml Balance -200 ml -160 ml 0 ml -23 ml Intake Oral 0 ml 240 ml 240 ml IV Total 25 ml 237 ml Other 200 ml Output Urine Total 200 ml 400 ml 500 ml Other 225 ml # Bowel Movements 0 0 Physical Exam VSS, afebrile. No JVD Lungs: CTA Heart: RRR. 12/12 Systolic murmur Abd: Benign Ext: Rlat hip bandage dry. LE warm and well perfused. Neuro: Intact. Laboratory Laboratory Tests Test 12/12/16 07:12 White Blood Count 8.6 TH/MM3 Red Blood Count 3.65 MIL/MM3 Hemoglobin 9.9 GM/DL Hematocrit 31.3 % Mean Corpuscular Volume 85.6 FL Mean Corpuscular Hemoglobin 27.0 PG Mean Corpuscular Hemoglobin 31.5 % Concent Red Cell Distribution Width 16.1 % Platelet Count 147 TH/MM3 Mean Platelet Volume 7.7 FL Imaging Echo report reviewed. still mild. Mild PHT. 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 (4) DM (diabetes mellitus) (5) ESRD (end stage renal disease) Assessment and Plan CV stable. D/C IVF. Resume home meds. I will follow PRN here and as outpatient after discharge. Thank you. Discussed Condition With Patient and his at bedside. Problem Qualifiers (1) Fracture, intertrochanteric, right femur: Qualified Code: S72.141A - Fracture, intertrochanteric, right femur, closed, initial encounter (2) DM (diabetes mellitus): Burak Carcamo MD Dec 12, 2016 08:13
[2016-12-12 08:16] LABS: POTASSIUM 5.2 MEQ/L (3.5-5.1)
[2016-12-12] MEDS: SODIUM CHLORIDE 0.9% FLUSH 5 ML FLUSH IVF SCH ×2 (09:36→19:47)
[2016-12-12] MEDS: amLODIPine BESYLATE 5 MG TAB PO SCH (09:36)
[2016-12-12] MEDS: METOPROLOL TARTRATE 25 MG TAB PO SCH ×2 (09:36→19:46)
[2016-12-12] MEDS: VANCOMYCIN INJ 1,000 MG in SODIUM CHLOR 0.9% 250 ML INJ 250 ML IV SCH ×2 (09:37→19:47)
[2016-12-12] MEDS: ENOXAPARIN SODIUM 30 MG/0.3 ML SYRINGE SQ SCH ×2 (09:37→19:47)
--- NOTE | 2016-12-12 12:11 | HHI.NPPN ---
Subjective General Problems: Anemia Renal Failure: Chronic, End Stage Renal Disease History of Present Illness 86 Year old with Hip fracture, ESRD Interval History Surgery yesterday. Sitting up in chair, he looks well. (Marley Colon) Review of Systems Musculoskeletal MS: Pain/Stiffness (Marley Colon) Objective Data Data 12/11/16 12/12/16 19:00 07:00 Intake Total 240 ml 702 ml Output Total 400 ml 725 ml Balance -160 ml -23 ml Intake Oral 240 ml 240 ml IV Total 262 ml Other 200 ml Output Urine Total 400 ml 500 ml Other 225 ml # Bowel Movements 0 0 Vital Signs Date Time Temp Pulse Resp B/P Pulse Ox O2 Delivery O2 Flow Rate FiO2 12/12/16 08:00 95.5 80 18 157/65 95 12/12/16 04:00 98.8 85 20 155/65 94 12/12/16 02:20 21 12/12/16 00:00 99.2 84 18 165/65 98 12/11/16 22:45 97.5 78 16 169/67 97 Nasal Cannula 3 12/11/16 22:30 75 14 172/70 98 Nasal Cannula 3 12/11/16 22:15 66 16 165/71 99 Nasal Cannula 3 12/11/16 22:00 68 12 129/55 97 Nasal Cannula 3 12/11/16 21:56 98.2 83 12 118/52 97 Nasal Cannula 3 12/11/16 20:15 82 11 155/66 97 12/11/16 20:00 83 12 176/66 97 12/11/16 19:55 99.1 84 10 177/74 88 12/11/16 19:55 88 Nasal Cannula 3 12/11/16 16:00 96.3 80 18 152/61 93 (Marley Colon) -: 12/12/16 0712 12/12/16 0712 Imaging Last 72 hours Impressions Hip X-Ray 12/11/16 0000 Signed Impressions: Service Date/Time: Sunday, December 11, 2016 21:30 - CONCLUSION: Postoperative changes are noted as above. Deniz Morrissey MD Hip and Pelvis X-Ray 12/09/16 1550 Signed Impressions: Service Date/Time: Friday, December 09, 2016 16:19 - CONCLUSION: Intertrochanteric fracture right hip. Parish Metcalf MD Chest X-Ray 12/09/16 1550 Signed Impressions: Service Date/Time: Friday, December 09, 2016 16:21 - CONCLUSION: Minimal left basilar density likely atelectasis. Parish Metcalf MD Tubes & Lines: Perma-Cath, Quintana (Isaiah,Marley B. CEMENT PAVER) Physical Exam General Appearance: Well Developed, Well Nourished, Comfortable (Isaiah,Marley B. CEMENT PAVER) Neck Neck Exam: Neck Supple (Isaiah,Marley B. CEMENT PAVER) Pulmonary Resp Exam: Clear Bilaterally, Breath Sounds Equal (Isaiah,Marley B. CEMENT PAVER) Cardiology CV Exam: Regular, Normal Sinus Rhythm (Isaiah,Marley B. CEMENT PAVER) Gastrointestinal/Abdomen GI Exam: Soft, Non-Tender, Bowel Sounds Present (Isaiah,Marley B. CEMENT PAVER) Musculoskeletal MS Exam: Joints Intact, Normal Tone (IsaiahMarley B. CEMENT PAVER) Integumentary Skin Exam: Warm, Dry (IsaiahMarley B. CEMENT PAVER) Extremeties Extremities Exam: No Edema, Pedal Pulses Palpable (IsaiahMarley B. CEMENT PAVER) Neurologic Neuro Exam: Alert, Awake, Oriented, Speech Clear, Moving All Extremities ( IsaiahMarley B. CEMENT PAVER) Psychiatric Psych Exam: Appropriate Responses (IsaiahMarley B. CEMENT PAVER) Assessment/Plan Problem List: (1) ESRD (end stage renal disease) Plan: HD T--Mon, he is due tomorrow no current renal concerns if still here we will dialyze tomorrow remove quintana no IVF required epogen with HD D/W pt and (2) Fracture, intertrochanteric, right femur Plan: s/p hip repair 3/ PRN pain control PT/OT, may need rehab wound care ortho to give recommendations (3) DM (diabetes mellitus) Plan: follow BG insulin as needed (4) HTN (hypertension) Plan: Monitor BP (IsaiahMarley B. CEMENT PAVER) Plan patient was seen and examined. Agree with above assessment and plan. 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
--- NOTE | 2016-12-12 13:59 | HHI.PR ---
Subjective Subjective Remarks forgetful right hip pain no cp no sob no n/v no fever at bsd Review of Systems Constitutional Constitutional Remarks 12 point ROS completed, unreliable Vitals/Results Intake & Output 12/11/16 12/11/16 12/12/16 15:00 23:00 07:00 Intake Total 240 ml 225 ml 477 ml Output Total 400 ml 225 ml 500 ml Balance -160 ml 0 ml -23 ml Intake Oral 240 ml 240 ml IV Total 25 ml 237 ml Other 200 ml Output Urine Total 400 ml 500 ml Other 225 ml # Bowel Movements 0 0 Vital Signs Vital Signs Date Time Temp Pulse Resp B/P Pulse Ox O2 Delivery O2 Flow Rate FiO2 12/12/16 08:00 95.5 80 18 157/65 95 12/12/16 04:00 98.8 85 20 155/65 94 12/12/16 02:20 21 12/12/16 00:00 99.2 84 18 165/65 98 12/11/16 22:45 97.5 78 16 169/67 97 Nasal Cannula 3 12/11/16 22:30 75 14 172/70 98 Nasal Cannula 3 12/11/16 22:15 66 16 165/71 99 Nasal Cannula 3 12/11/16 22:00 68 12 129/55 97 Nasal Cannula 3 12/11/16 21:56 98.2 83 12 118/52 97 Nasal Cannula 3 12/11/16 20:15 82 11 155/66 97 12/11/16 20:00 83 12 176/66 97 12/11/16 19:55 99.1 84 10 177/74 88 12/11/16 19:55 88 Nasal Cannula 3 12/11/16 16:00 96.3 80 18 152/61 93 CBC/BMP: 12/12/16 0712 12/12/16 0712 Lab Results Laboratory Tests Test 12/12/16 07:12 White Blood Count 8.6 TH/MM3 Red Blood Count 3.65 MIL/MM3 Hemoglobin 9.9 GM/DL Hematocrit 31.3 % Mean Corpuscular Volume 85.6 FL Mean Corpuscular Hemoglobin 27.0 PG Mean Corpuscular Hemoglobin 31.5 % Concent Red Cell Distribution Width 16.1 % Platelet Count 147 TH/MM3 Mean Platelet Volume 7.7 FL Sodium Level 134 MEQ/L Potassium Level 5.2 MEQ/L Chloride Level 99 MEQ/L Carbon Dioxide Level 26.0 MEQ/L Anion Gap 9 MEQ/L Blood Urea Nitrogen 49 MG/DL Creatinine 3.30 MG/DL Estimat Glomerular Filtration 18 ML/MIN Rate Random Glucose 378 MG/DL Calcium Level 7.9 MG/DL Physical Exam General General Appearance: Well Developed, Well Nourished, Comfortable Eyes Eye Exam: Pupils Equal, Pupils Reactive Ears & Nose Ears & Nose Exam: Nasal Mucosa [place] Throat Throat Exam: Oral Mucosa [place] & Moist Neck Neck Exam: Neck Supple Pulmonary Resp Exam: Clear Bilaterally, Breath Sounds Equal Cardiology CV Exam: Regular, Normal Sinus Rhythm, Murmur Gastrointestinal/Abdomen GI Exam: Soft, Non-Tender, Bowel Sounds Present, Non-Distended Genitourinary Exam: Clear Urine Remarks ELLER Musculoskeletal MS Exam: Joints Intact, Normal Tone MS Remarks right hip dressing D/I Integumentary Skin Exam: Warm, Dry Extremeties Extremities Exam: No Edema, Pedal Pulses Palpable Neurologic Neuro Exam: Alert, Awake, Oriented, Speech Clear, Moving All Extremities Psychiatric Psych Exam: Appropriate Responses VTE Prophylaxis VTE Prophylaxis Device: TEDs VTE Prophylaxis Meds: Lovenox Assessment/Plan Problem List: (1) Fracture, intertrochanteric, right femur (2) Right hip intramedullary dominique fixation (3) Aortic stenosis (4) DM (diabetes mellitus) (5) HTN (hypertension) (6) ESRD (end stage renal disease) Assessment/Plan S/P Right hip intramedullary dominique fixation 3/5 POD #1 post op ortho care wound care PT Lovenox for DVT prophylaxis appreciate ortho input ESRD on HD continue with care per nephrology K 5.2 today Aortic stenosis Echo done, EF 55 to 60 % appreciate card input continue BB BP management continue Norvasc Accuchecks AC/HS with ISS HH stable Labs in am D/W RN D/W Dr. Lowery D/W pt, This patient was seen and examined by myself and Dr. Lowery, this note is written on his behalf. 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
--- NOTE | 2016-12-12 19:07 | PD.ORT.PN ---
Subjective Subjective Remarks no CP/SOB. no issues Objective Vitals Vital Signs Date Time Temp Pulse Resp B/P Pulse Ox O2 Delivery O2 Flow Rate FiO2 12/12/16 16:00 96.0 80 18 161/65 95 12/12/16 13:44 98 12/12/16 12:00 96.0 68 18 171/62 97 12/12/16 08:00 95.5 80 18 157/65 95 12/12/16 04:00 98.8 85 20 155/65 94 12/12/16 02:20 21 12/12/16 00:00 99.2 84 18 165/65 98 12/11/16 22:45 97.5 78 16 169/67 97 Nasal Cannula 3 12/11/16 22:30 75 14 172/70 98 Nasal Cannula 3 12/11/16 22:15 66 16 165/71 99 Nasal Cannula 3 12/11/16 22:00 68 12 129/55 97 Nasal Cannula 3 12/11/16 21:56 98.2 83 12 118/52 97 Nasal Cannula 3 12/11/16 20:15 82 11 155/66 97 12/11/16 20:00 83 12 176/66 97 12/11/16 19:55 99.1 84 10 177/74 88 12/11/16 19:55 88 Nasal Cannula 3 I/O 12/11/16 12/11/16 12/11/16 12/12/16 12/12/16 12/12/16 07:00 15:00 23:00 07:00 15:00 23:00 Intake Total 0 ml 240 ml 225 ml 477 ml 600 ml Output Total 200 ml 400 ml 225 ml 500 ml 900 ml Balance -200 ml -160 ml 0 ml -23 ml -300 ml Intake Oral 0 ml 240 ml 240 ml 600 ml IV Total 25 ml 237 ml Other 200 ml Output Urine Total 200 ml 400 ml 500 ml 900 ml Other 225 ml # Bowel Movements 0 0 Result Diagram: 12/12/1671112/12/16711 Imaging Last 24 hours Impressions Hip and Pelvis X-Ray 12/09/16 1550 Signed Impressions: Service Date/Time: Friday, December 09, 2016 16:19 - CONCLUSION: Intertrochanteric fracture right hip. Parish Metcalf MD Chest X-Ray 12/09/161549 Signed Impressions: Service Date/Time: Friday, December 09, 2016 16:21 - CONCLUSION: Minimal left basilar density likely atelectasis. Parish Metcalf MD Objective Remarks RLE: grossly nvi. dressing CDI, SILT distally, +EHL/FHL, soft compartments, neg homans Assessment & Plan Assessment and Plan POD 1- right hip IMN- short Doing well. no issues. no CP/SOB Antibiotics: postop- dc today Antiocoagulation: Lovenox Weight bearing status: 50% WB Dressing: Change daily, by RN starting postop day 2 Dispo: expected discharge likely inpatient rehab Ortho stable José Luis Amanda Jr., MD Dec 12, 2016 19:07
[2016-12-12] MEDS: ATORVASTATIN 10 MG TAB PO SCH (19:46)
[2016-12-12] MEDS: guanFACINE HCL 1 MG TAB PO SCH (19:46)
--- NOTE | 2016-12-12 20:39 | MH ---
cc: MICHELLE SIMON MD DATE OF ADMISSION 12/09/2016 DATE OF 1930 CHIEF COMPLAINT Right hip pain. HISTORY OF THE PRESENT ILLNESS This is an 86-year-old [place] gentleman who sustained a right-sided hip fracture after a fall while trying to bring the newspaper back from his driveway. He was brought in to the emergency department at [facility] after the above. H was seen by the undersigned in the emergency department on 12/09/2016. This is a belated history and physical dictation. The patient has end-stage renal failure and he is on dialysis. He denies any head injury or any loss of consciousness. No neck pain. He was seen by the undersigned in the presence of his who herself is a psychiatrist. PAST MEDICAL HISTORY 1. Hearing loss. 2. Hyperlipidemia. 3. Hypertension. 4. Asthma. 5. Arthritis. 6. Unsteady gait. 7. Diabetes. 8. End-stage renal disease on dialysis. PAST SURGICAL HISTORY 1. Hernia repair. 2. Transurethral resection of prostate. MEDICATIONS Home medications: 1. Insulin R 6 units subcutaneous q.h.s. 2. Linagliptin 5 milligrams p.o. daily. 3. Lipitor 10 milligrams q.h.s. 4. Norvasc 10 milligrams daily. 5. Robitussin 1 milligram by mouth q.h.s. ALLERGIES SHELLFISH. SOCIAL HISTORY No smoking, alcohol or illicit drug use. FAMILY HISTORY Reviewed and noncontributory. REVIEW OF SYSTEMS 10 systems were reviewed and otherwise negative. PHYSICAL EXAMINATION GENERAL: He is awake but mildly somnolent. Verbal, responding to questions with yes and no and with very short sentences. VITAL SIGNS: Temperature 97.9, pulse of 76, respiratory rate 18, blood pressure 128/61. HEENT: Head is normocephalic. EYES: Pupils equal and reactive to light. Extraocular movements intact. NECK: Supple. No jugular venous distention. No lymphadenopathy. No thyromegaly. CARDIOVASCULAR: S1-S2. He does have the systolic murmur. LUNGS: Clear to auscultation. GASTROINTESTINAL: Abdomen is soft and nontender. Nondistended. Bowel sounds positive. EXTREMITIES: The right lower extremity is shortened and externally rotated. LABORATORY DATA On arrival to the emergency room white count 8.4, hemoglobin 12.3, platelets 191. Sodium 136, potassium 4.2, chloride 100, CO2 25, BUN 28, creatinine is 3.3. Glucose of 176. Calcium 8.3. Bilirubin 0.2, AST 14, ALT 19, alkaline phosphatase 135. Total protein 7.6. Albumin 3.6. INR was 0.89. IMAGING Included a hip x-ray that showed intertrochanteric right hip fracture. A chest x-ray showed minimal left basilar density, likely atelectasis. An electrocardiogram was done and showed right bundle-branch block with left anterior fascicular block, sinus rhythm. IMPRESSION 1. Right hip fracture. 2. Right bundle-branch block. 3. Diabetes mellitus, has been difficult to control as the patient does not like to have his fingers stuck for Accu-Cheks. 4. End-stage renal disease on dialysis. PLAN The patient has been admitted to medical floor. Pain medication has been given in the form of morphine 10 milligrams IV q.3h as needed to help him with his pain. Zofran 4 milligrams IV q.6h as needed is also ordered. Home medications are continued. His senior android software engineer is being consulted. Also computational geneticist orthopedics are consulted. Accu-Chek are being ordered with low dose sliding scale. The case was discussed at length with his and all questions answered. MD DION Sharma/MAXINE /7:23 PM /8:18 PM
[2016-12-13] VITALS (8 sets, daily range): BP systolic 134–164; BP diastolic 52–84; PULSE 65–95; RESP 16–18; TEMP 96.5–98.4; O2SAT 93–97
[2016-12-13] MEDS: INSULIN ASPART SUPPLEMENTAL SCALE SQ SCH ×4 (06:41→21:00)
[2016-12-13] MEDS: SODIUM CHLORIDE 0.9% FLUSH 5 ML FLUSH IVF SCH ×2 (09:00→21:05)
[2016-12-13] MEDS: METOPROLOL TARTRATE 25 MG TAB PO SCH ×2 (09:04→21:05)
[2016-12-13] MEDS: ENOXAPARIN SODIUM 30 MG/0.3 ML SYRINGE SQ SCH ×2 (09:05→21:05)
[2016-12-13] MEDS: amLODIPine BESYLATE 5 MG TAB PO SCH (09:05)
[2016-12-13] MEDS: MULTIVITAMINS/MINERALS THERAPEUTIC TAB PO SCH ×2 (09:09→21:05)
[2016-12-13] MEDS: ACETAMINOPHEN/HYDROcodone 325 MG/5 MG TAB PO PRN ×3 (09:43→23:34)
--- NOTE | 2016-12-13 11:16 | HHI.PR ---
Subjective Subjective Remarks forgetful right hip pain no cp no sob no n/v no fever mariano bucio eating okay no bm going for HD today Review of Systems Constitutional Constitutional Remarks 12 point ROS completed, unreliable Vitals/Results Intake & Output 12/12/16 12/12/16 12/13/16 15:00 23:00 07:00 Intake Total 600 ml 1201 ml 240 ml Output Total 900 ml 50 ml 175 ml Balance -300 ml 1151 ml 65 ml Intake Oral 600 ml 480 ml 240 ml IV Total 721 ml Output Urine Total 900 ml 50 ml 175 ml Bladder Scan Volume Amount 148 ml # Bowel Movements 0 0 Vital Signs Vital Signs Date Time Temp Pulse Resp B/P Pulse Ox O2 Delivery O2 Flow Rate FiO2 12/13/16 08:45 97 21 12/13/16 08:00 98.4 72 16 164/66 96 12/13/16 07:40 Room Air 12/13/16 04:00 69 153/57 12/13/16 00:15 96.5 78 18 149/59 95 12/12/16 20:15 96.2 83 17 180/66 97 12/12/16 16:00 96.0 80 18 161/65 95 12/12/16 13:44 98 12/12/16 12:00 96.0 68 18 171/62 97 CBC/BMP: 12/12/16 0712 12/12/16 0712 Physical Exam General General Appearance: Well Developed, Well Nourished, Comfortable Eyes Eye Exam: Pupils Equal, Pupils Reactive Ears & Nose Ears & Nose Exam: Nasal Mucosa [employer] Throat Throat Exam: Oral Mucosa [employer] & Moist Neck Neck Exam: Neck Supple Pulmonary Resp Exam: Clear Bilaterally, Breath Sounds Equal Cardiology CV Exam: Regular, Normal Sinus Rhythm, Murmur Gastrointestinal/Abdomen GI Exam: Soft, Non-Tender, Bowel Sounds Present, Non-Distended Musculoskeletal MS Exam: Joints Intact, Normal Tone MS Remarks right hip dressing D/I Integumentary Skin Exam: Warm, Dry Extremeties Extremities Exam: No Edema, Pedal Pulses Palpable Neurologic Neuro Exam: Alert, Awake, Oriented, Speech Clear, Moving All Extremities Psychiatric Psych Exam: Appropriate Responses VTE Prophylaxis VTE Prophylaxis Device: TEDs VTE Prophylaxis Meds: Lovenox Assessment/Plan Problem List: (1) Fracture, intertrochanteric, right femur (2) Right hip intramedullary dominique fixation (3) Aortic stenosis (4) DM (diabetes mellitus) (5) HTN (hypertension) (6) ESRD (end stage renal disease) Assessment/Plan S/P Right hip intramedullary dominique fixation 3/ POD #2 post op ortho care wound care PT Lovenox for DVT prophylaxis appreciate ortho input ESRD on HD continue with care per nephrology Aortic stenosis Echo done, EF 55 to 60 % appreciate card input continue BB BP management continue Norvasc Accuchecks AC/HS with ISS HH stable Labs in am [facility] has accepted, needs to have BM MOM PRN hopefully dc to [facility] tomorrow D/W RN D/W Dr. Lowery D/W pt This patient was seen and examined by myself and Dr. Lowery, this note is written on his behalf. 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
--- NOTE | 2016-12-13 12:23 | HHI.NPPN ---
Subjective General Problems: Anemia Renal Failure: Chronic, End Stage Renal Disease History of Present Illness 86 Year old with Hip fracture, ESRD Interval History Having right hip/thigh pain. Due for dialysis. (Marley Colon) Review of Systems Musculoskeletal MS: Pain/Stiffness (Marley Colon) Objective Data Data 12/12/16 12/13/16 19:00 07:00 Intake Total 600 ml 1441 ml Output Total 900 ml 225 ml Balance -300 ml 1216 ml Intake Oral 600 ml 720 ml IV Total 721 ml Output Urine Total 900 ml 225 ml Bladder Scan Volume Amount 148 ml # Bowel Movements 0 Vital Signs Date Time Temp Pulse Resp B/P Pulse Ox O2 Delivery O2 Flow Rate FiO2 12/13/16 08:45 97 21 12/13/16 08:00 98.4 72 16 164/66 96 12/13/16 07:40 Room Air 12/13/16 04:00 69 153/57 12/13/16 00:15 96.5 78 18 149/59 95 12/12/16 20:15 96.2 83 17 180/66 97 12/12/16 16:00 96.0 80 18 161/65 95 12/12/16 13:44 98 (Marley Colon) -: 12/12/16 0712 12/12/16 0712 Tubes & Lines: Perma-Cath, Crook (Marley Colon) Physical Exam General Appearance: Well Developed, Well Nourished, Comfortable (Marley Colon) Eyes Eye Exam: Pupils Equal, Pupils Reactive (Marley Colon) Ears & Nose Ears & Nose Exam: Nasal Mucosa [place] (Marley Colon) Throat Throat Exam: Oral Mucosa [place] & Moist (Marley Colon) Neck Neck Exam: Neck Supple (Marley Colon) Pulmonary Resp Exam: Clear Bilaterally, Breath Sounds Equal (Marley Colon) Cardiology CV Exam: Regular, Normal Sinus Rhythm, Murmur (Marley Colon) Gastrointestinal/Abdomen GI Exam: Soft, Non-Tender, Bowel Sounds Present, Non-Distended (Marley Colon) Genitourinary Exam: Clear Urine (Marley Colon) Musculoskeletal MS Exam: Joints Intact, Normal Tone (Marley Colon) Integumentary Skin Exam: Warm, Dry (Marley Colon) Extremeties Extremities Exam: No Edema, Pedal Pulses Palpable (Marley Colon) Neurologic Neuro Exam: Alert, Awake, Oriented, Speech Clear, Moving All Extremities ( Marley Colon) Psychiatric Psych Exam: Appropriate Responses (Marley Colon) VTE Prophylaxis Device: TEDs (Marley Colon) Assessment/Plan Problem List: (1) ESRD (end stage renal disease) Plan: HD T--Mon, he is due today no current renal concerns has outpatient HD arrangements oliguric at baseline no IVF required epogen with HD (2) Fracture, intertrochanteric, right femur Plan: s/p hip repair 3/5 PRN pain control PT/OT, may need rehab wound care ortho to give recommendations (3) DM (diabetes mellitus) Plan: follow BG insulin as needed (4) HTN (hypertension) Plan: Monitor BP Plan he is cleared for discharge today after dialysis (Marley Colon) Plan patient was seen and examined. Agree with above and examined. 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
[2016-12-13] MEDS ORDERED: MAGNESIUM HYDROXIDE SUSP 30 ML CUP PO PRN (17:00)
[2016-12-13] MEDS: ATORVASTATIN 10 MG TAB PO SCH (21:05)
[2016-12-13] MEDS: guanFACINE HCL 1 MG TAB PO SCH (21:05)
[2016-12-14 04:15] VITALS: BP 136/48; PULSE 68; RESP 17; TEMP 96.1; O2SAT 93
[2016-12-14] MEDS: INSULIN ASPART SUPPLEMENTAL SCALE SQ SCH ×2 (05:23→11:00)
[2016-12-14] MEDS: ACETAMINOPHEN/HYDROcodone 325 MG/5 MG TAB PO PRN ×2 (05:23→09:40)
[2016-12-14 08:00] VITALS: BP 130/47; PULSE 69; RESP 16; TEMP 97.6; O2SAT 97
[2016-12-14 08:59] VITALS: O2SAT 94
[2016-12-14] MEDS: amLODIPine BESYLATE 5 MG TAB PO SCH (09:36)
[2016-12-14] MEDS: METOPROLOL TARTRATE 25 MG TAB PO SCH (09:36)
[2016-12-14] MEDS: ENOXAPARIN SODIUM 30 MG/0.3 ML SYRINGE SQ SCH (09:37)
[2016-12-14] MEDS: MULTIVITAMINS/MINERALS THERAPEUTIC TAB PO SCH (09:37)
--- NOTE | 2016-12-14 10:14 | PD.ORT.PN ---
Subjective Subjective Remarks no CP/SOB. no issues. In bed Objective Vitals Vital Signs Date Time Temp Pulse Resp B/P Pulse Ox O2 Delivery O2 Flow Rate FiO2 12/14/16 08:59 94 21 12/14/16 08:00 97.6 69 16 130/47 97 12/14/16 04:15 96.1 68 17 136/48 93 12/13/16 23:50 97.5 65 17 136/52 93 12/13/16 20:30 96.8 82 17 134/56 96 12/13/16 20:29 94 21 12/13/16 20:00 96 Room Air 12/13/16 14:50 95 142/84 12/13/16 10:45 17 I/O 12/13/16 12/13/16 12/13/16 12/14/16 12/14/16 12/14/16 07:00 15:00 23:00 07:00 15:00 23:00 Intake Total 240 ml 660 ml 240 ml 480 ml Output Total 175 ml 1500 ml 400 ml Balance 65 ml -840 ml 240 ml 80 ml Intake Oral 240 ml 660 ml 240 ml 480 ml Output Urine Total 175 ml 400 ml Hemodialysis 1500 ml Bladder Scan Volume Amount 148 ml # Voids 3 2 # Bowel Movements 0 2 0 Result Diagram: 12/12/16 0712 12/12/16 0712 Imaging Last 24 hours Impressions Hip and Pelvis X-Ray 12/09/16 1550 Signed Impressions: Service Date/Time: Friday, December 09, 2016 16:19 - CONCLUSION: Intertrochanteric fracture right hip. Parish Metcalf MD Chest X-Ray 12/09/16 1550 Signed Impressions: Service Date/Time: Friday, December 09, 2016 16:21 - CONCLUSION: Minimal left basilar density likely atelectasis. Parish Metcalf MD Objective Remarks RLE: grossly nvi. dressing CDI, SILT distally, +EHL/FHL, soft compartments, neg homans Assessment & Plan Assessment and Plan POD 3- right hip IMN- short Doing well. no issues. no CP/SOB Antiocoagulation: Lovenox Weight bearing status: 50% WB Dressing: Change daily, by RN Dispo: expected discharge likely inpatient rehab Ortho stable OK TO DC. SING OFF José Luis Amanda Jr., MD Dec 14, 2016 10:14
[2016-12-14] MEDS ORDERED: METO25TA3 PO (11:07)
[2016-12-14] MEDS ORDERED: ENOX30P SQ (11:07)
[2016-12-14] MEDS ORDERED: META28.34 PO (11:07)
[2016-12-14] MEDS ORDERED: COLA100C3 PO (11:07)
[2016-12-14] MEDS: SODIUM CHLORIDE 0.9% FLUSH 5 ML FLUSH IVF SCH (11:09)
--- NOTE | 2016-12-14 11:44 | HHI.NPPN ---
Subjective General Problems: Anemia Renal Failure: Chronic, End Stage Renal Disease History of Present Illness 86 Year old with Hip fracture, ESRD Interval History Dialyzed yesterday. [facility]. (Marley Colon) Review of Systems Musculoskeletal MS: Pain/Stiffness (Marley Colon) Objective Data Data 12/13/16 12/14/16 19:00 07:00 Intake Total 660 ml 720 ml Output Total 1500 ml 400 ml Balance -840 ml 320 ml Intake Oral 660 ml 720 ml Output Urine Total 400 ml Hemodialysis 1500 ml # Voids 3 2 # Bowel Movements 2 0 Vital Signs Date Time Temp Pulse Resp B/P Pulse Ox O2 Delivery O2 Flow Rate FiO2 12/14/16 08:59 94 21 12/14/16 08:00 97.6 69 16 130/47 97 12/14/16 04:15 96.1 68 17 136/48 93 12/13/16 23:50 97.5 65 17 136/52 93 12/13/16 20:30 96.8 82 17 134/56 96 12/13/16 20:29 94 21 12/13/16 20:00 96 Room Air 12/13/16 14:50 95 142/84 (Marley Colon) -: 12/12/16 0712 12/12/16 0712 Tubes & Lines: Perma-Cath, Crook (Marley Colon) Physical Exam General Appearance: Well Developed, Well Nourished, Comfortable (Marley Colon) Eyes Eye Exam: Pupils Equal, Pupils Reactive (Marley Colon) Ears & Nose Ears & Nose Exam: Nasal Mucosa [place] (Marley Colon) Throat Throat Exam: Oral Mucosa [place] & Moist (Marley Colon) Neck Neck Exam: Neck Supple (Marley Colon) Pulmonary Resp Exam: Clear Bilaterally, Breath Sounds Equal (Marley Colon) Cardiology CV Exam: Regular, Normal Sinus Rhythm, Murmur (Marley Colon) Gastrointestinal/Abdomen GI Exam: Soft, Non-Tender, Bowel Sounds Present, Non-Distended (Marley Colon) Musculoskeletal MS Exam: Joints Intact, Normal Tone (Marley Colon) Integumentary Skin Exam: Warm, Dry (Marley Colon) Extremeties Extremities Exam: No Edema, Pedal Pulses Palpable (Marley Colon) Neurologic Neuro Exam: Alert, Awake, Oriented, Speech Clear, Moving All Extremities ( Marley Colon) Psychiatric Psych Exam: Appropriate Responses (Marley Colon) VTE Prophylaxis Device: TEDs (Marley Colon) Assessment/Plan Problem List: (1) ESRD (end stage renal disease) Plan: HD T-Th-Sat, he had 1.5 liter UF yesterday no current renal concerns we will continue HD while in rehab oliguric at baseline no IVF required epogen with HD (2) Fracture, intertrochanteric, right femur Plan: s/p hip repair 3/5 PRN pain control PT/OT, transfer to rehab today wound care ortho to give recommendations (3) DM (diabetes mellitus) Plan: follow BG insulin as needed (4) HTN (hypertension) Plan: Monitor BP (Marley Colon) Plan patient was seen and examined. Agree with above assessment and plan. 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
[2016-12-14 12:00] VITALS: BP 141/53; PULSE 66; RESP 16; TEMP 97.5; O2SAT 96
--- NOTE | 2016-12-14 13:14 | HHI.PR ---
Subjective Subjective Remarks forgetful right hip pain no cp no sob no n/v no fever eating okay had bm Review of Systems Constitutional Constitutional Remarks 12 point ROS completed, unreliable Vitals/Results Intake & Output 12/13/16 12/13/16 12/14/16 15:00 23:00 07:00 Intake Total 660 ml 240 ml 480 ml Output Total 1500 ml 400 ml Balance -840 ml 240 ml 80 ml Intake Oral 660 ml 240 ml 480 ml Output Urine Total 400 ml Hemodialysis 1500 ml # Voids 3 2 # Bowel Movements 2 0 Vital Signs Vital Signs Date Time Temp Pulse Resp B/P Pulse Ox O2 Delivery O2 Flow Rate FiO2 12/14/16 08:59 94 21 12/14/16 08:00 97.6 69 16 130/47 97 12/14/16 04:15 96.1 68 17 136/48 93 12/13/16 23:50 97.5 65 17 136/52 93 12/13/16 20:30 96.8 82 17 134/56 96 12/13/16 20:29 94 21 12/13/16 20:00 96 Room Air 12/13/16 14:50 95 142/84 CBC/BMP: 12/12/16 0712 12/12/16 0712 Physical Exam General General Appearance: Well Developed, Well Nourished, Comfortable Eyes Eye Exam: Pupils Equal, Pupils Reactive Ears & Nose Ears & Nose Exam: Nasal Mucosa [employer] Throat Throat Exam: Oral Mucosa [employer] & Moist Neck Neck Exam: Neck Supple Pulmonary Resp Exam: Clear Bilaterally, Breath Sounds Equal Cardiology CV Exam: Regular, Normal Sinus Rhythm, Murmur Gastrointestinal/Abdomen GI Exam: Soft, Non-Tender, Bowel Sounds Present, Non-Distended Musculoskeletal MS Exam: Joints Intact, Normal Tone MS Remarks right hip dressing D/I Integumentary Skin Exam: Warm, Dry Extremeties Extremities Exam: No Edema, Pedal Pulses Palpable Neurologic Neuro Exam: Alert, Awake, Oriented, Speech Clear, Moving All Extremities Psychiatric Psych Exam: Appropriate Responses VTE Prophylaxis VTE Prophylaxis Device: TEDs VTE Prophylaxis Meds: Lovenox Assessment/Plan Problem List: (1) Fracture, intertrochanteric, right femur (2) Right hip intramedullary dominique fixation (3) Aortic stenosis (4) DM (diabetes mellitus) (5) HTN (hypertension) (6) ESRD (end stage renal disease) Assessment/Plan S/P Right hip intramedullary dominique fixation 3/ POD #3 post op ortho care wound care PT Lovenox for DVT prophylaxis appreciate ortho input ESRD on HD continue with care per nephrology Aortic stenosis Echo done, EF 55 to 60 % appreciate card input continue BB BP management continue Norvasc Accuchecks AC/HS with ISS HH stable Labs in am [facility] has accepted had BM Discharge to [facility] today F/U ortho 2 weeks Activity-per ortho Diet-heart healthy D/W RN D/W Dr. Lowery D/W pt D/W CM This patient was seen and examined by myself and Dr. Lowery, this note is written on his behalf. 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
--- NOTE | 2016-12-15 16:57 | HHI.DS ---
Discharge Summary Admission Date Dec 09, 2016 at 16:46 Discharge Date: Dec 14, 2016 Admitting Diagnosis right intertrochanteric fracture, ESRD on HD Procedures Hip arthroplasty, 3517 Brief History This was a 86-year-old [place] gentleman who sustained a right-sided hip fracture after a fall while trying to bring the newspaper back from his driveway. He was brought in to the emergency department at [facility] after the above. Patient was seen by the undersigned in the emergency department on 12/09/2016. The patient had end-stage renal failure and he was on dialysis. He denied any head injury or any loss of consciousness. No neck pain. He was seen by the undersigned in the presence of his who herself is a psychiatrist. CBC/BMP: 12/12/16 0712 12/12/16 0712 Imaging Last Impressions Hip X-Ray 12/11/16 0000 Signed Impressions: Service Date/Time: Sunday, December 11, 2016 21:30 - CONCLUSION: Postoperative changes are noted as above. Deniz Morrissey MD Hip and Pelvis X-Ray 12/09/16 1550 Signed Impressions: Service Date/Time: Friday, December 09, 2016 16:19 - CONCLUSION: Intertrochanteric fracture right hip. Parish Metcalf MD Chest X-Ray 12/09/16 1550 Signed Impressions: Service Date/Time: Friday, December 09, 2016 16:21 - CONCLUSION: Minimal left basilar density likely atelectasis. Parish Metcalf MD PE at Discharge General General Appearance: Well Developed, Well Nourished, Comfortable Eyes Eye Exam: Pupils Equal, Pupils Reactive Ears & Nose Ears & Nose Exam: Nasal Mucosa [place] Throat Throat Exam: Oral Mucosa [place] & Moist Neck Neck Exam: Neck Supple Pulmonary Resp Exam: Clear Bilaterally, Breath Sounds Equal Cardiology CV Exam: Regular, Normal Sinus Rhythm, Murmur Gastrointestinal/Abdomen GI Exam: Soft, Non-Tender, Bowel Sounds Present, Non-Distended Musculoskeletal MS Exam: Joints Intact, Normal Tone MS Remarks right hip dressing D/I Integumentary Skin Exam: Warm, Dry Extremeties Extremities Exam: No Edema, Pedal Pulses Palpable Neurologic Neuro Exam: Alert, Awake, Oriented, Speech Clear, Moving All Extremities Psychiatric Psych Exam: Appropriate Responses VTE Prophylaxis VTE Prophylaxis Device: TEDs VTE Prophylaxis Meds: Lovenox Hospital Course These are the diagnoses that were used to treat this patient during this hospital stay. (1) Fracture, intertrochanteric, right femur (2) Right hip intramedullary dominique fixation (3) Aortic stenosis (4) DM (diabetes mellitus) (5) HTN (hypertension) (6) ESRD (end stage renal disease) Patient was S/P Right hip intramedullary dominique fixation 3/5 On POD #3, patient was receiving post op ortho care, and wound care. PT was consult could and treated patient for mobility, ADLs and strengthening Lovenox was used for DVT prophylaxis appreciate ortho input, for postop care and pain management. Patient had ESRD, on admission and was already receiving HD. continue with care per nephrology Aortic stenosis noted on admission, chronic Echo done, EF 55 to 60 % appreciate card input for medical management during this hospital stay. continue BB, medical management. BP management during hospital stay was to continue Norvasc Accuchecks AC/HS with ISS Patient's bowel management was monitored. Patient had BM today no issues. Was seen to be stable for transfer to [facility], rehabilitation. Was seen per Dr. Lowery, and okayed for discharge. During this hospital stay vital signs were monitored with any abnormals treated , as well as labs with treatment regimen. Pain management stable during this hospital stay. Pt Condition on Discharge: Stable Discharge Disposition: Rehab Inpatient Discharge Instructions DIET: Follow Instructions for: Diabetic Diet Activities you can perform: Toe Touch Weight Bearing New Medications: Docusate Sodium (Colace) 100 Mg Cap 100 MG PO BID Constipation #60 Ref 0 CAP Hydrocodone-Acetaminophen ([place]) 5-325 mg Tab 1 TAB PO Q4H PRN PAIN #60 Ref 0 TAB Psyllium Powder (Metamucil Smooth Texture) 28.3 % Pow 1 SCOOP PO DAILY 1 rounded [place] in 8 oz of liquid at the first sign of irregularity. Constipation #30 Ref 0 CONTAINER Enoxaparin Inj (Lovenox Inj) 30 Mg/0.3 Ml Syr 30 MG SQ DAILY Blood Clot Prevention #30 INJECTION Metoprolol Tartrate (Metoprolol Tartrate) 25 Mg Tab 25 MG PO BID Blood Pressure Management #60 TAB Continued Medications: Amlodipine (Norvasc) 10 Mg Tab 10 MG PO DAILY Blood Pressure Management #30 Ref 0 TAB Atorvastatin (Lipitor) 10 Mg Tab 10 MG PO HS Cholesterol Management #30 Ref 0 TAB Guanfacine (Tenex) 1 Mg Tab 1 MG PO HS Do not crush, chew or divide tablet. Take with a meal. Blood Pressure Management #30 Ref 0 TAB Insulin Human Regular Inj (Humulin R Inj) 1,000 Unit/10 Ml Vial 6 UNITS SQ HS Blood Sugar Management #10 Ref 0 ML Discontinued Medications: Linagliptin (Tradjenta) 5 Mg Tab 5 MG PO DAILY Blood Sugar Management #30 Ref 0 TAB Additional Information To rehabilitation Sarah Jo Dec 15, 2016 16:57
[2016-12-29] MEDS ORDERED: ENOX30P SQ (08:05)
[2016-12-29] MEDS ORDERED: META28.34 PO (08:05)
[2016-12-29] MEDS ORDERED: LIPI10TA PO (08:05)
[2016-12-29] MEDS ORDERED: TENE1TAB PO (08:05)
[2016-12-29] MEDS ORDERED: CLON.1T TD (08:05)
[2016-12-29] MEDS ORDERED: METO25TA3 PO (08:05)
[2016-12-29] MEDS ORDERED: AMBI5TAB PO ×2 (08:05→08:18)
[2016-12-29] MEDS ORDERED: NIFE30TA8 PO (08:05)
[2016-12-29] MEDS ORDERED: ACET325T PO (08:05)
[2016-12-29] MEDS ORDERED: COLA100C3 PO (08:05)
[2016-12-29] MEDS ORDERED: LEVEMIR SQ (08:05)
[2016-12-29] MEDS ORDERED: NITR0.4S SL (08:05)
[2016-12-29] MEDS ORDERED: NOVOLOGP2 SQ (08:10)
== END 2016-12-14 13:34 | DRG 480 ==
LOC: NEPA 15:40 → NEDA 16:46 → N06B 20:08
PROVIDERS: ADMIT Specialist; ATTEND Specialist
PROC: 5A1D60Z (ICD-10-PCS; 2016-12-10)
PROC: 0QS606Z Reposition Right Upper Femur with Intramedullary Internal Fixation Device, Open Approach (ICD-10-PCS; principal; 2016-12-11 20:31)
DX: S72.141A Displaced intertrochanteric fracture of right femur, initial encounter for closed fracture (principal); N18.6 End stage renal disease; I13.10 Hypertensive heart and chronic kidney disease without heart failure, with stage 1 through stage 4 chronic kidney disease, or unspecified chronic kidney disease; I45.2 Bifascicular block; E11.22 Type 2 diabetes mellitus with diabetic chronic kidney disease; R33.9 Retention of urine, unspecified; I25.10 Atherosclerotic heart disease of native coronary artery without angina pectoris; I35.0 Nonrheumatic aortic (valve) stenosis; H91.90 Unspecified hearing loss, unspecified ear; D64.9 Anemia, unspecified; E78.5 Hyperlipidemia, unspecified; R26.81 Unsteadiness on feet; R60.0 Localized edema; M17.11 Unilateral primary osteoarthritis, right knee; W01.0XXA Fall on same level from slipping, tripping and stumbling without subsequent striking against object, initial encounter; Y92.007 Garden or yard of unspecified non-institutional (private) residence as the place of occurrence of the external cause; Z79.4 Long term (current) use of insulin; Z91.013 Allergy to seafood; Z99.2 Dependence on renal dialysis
CPT/HCPCS: 37248; 71010; 73502; 75820; 76000; 80048; 80053; 82948; 83735; 84439; 84443; 85025; 85027; 85610; 85730; 86850; 86900; 86901; 90935; 93005; 93306; 94150; 96374; 96375; C1713; C1769; C1893; J0131; J1580; J1644; J1650; J1815; J2270; J2405; J2930; J3010; J3370; J7050; J7120; Q9967

== ENCOUNTER → 2017-03-29 | Outpatient (CLI) | payer MEDICARE, OTHER ==
[~2017-03-29] MED LIST changes: +ACET325T PO; +AMBI5TAB PO; -AMLO10 PO; +CLON.1T TD; +COLA100C3 PO; +ENOX30P SQ; -INSU100V2 SQ; +LEVEMIR SQ; +META28.34 PO; +METO25TA3 PO; +NIFE30TA8 PO; +NITR0.4S SL; +NOVOLOGP2 SQ; -TRAD5TAB PO
[2017-03-29 09:52] LABS: ANION GAP 9 MEQ/L (5-15); AST (GOT) 7 U/L (15-37); BICARBONATE 22.9 MEQ/L (21.0-32.0); BLOOD UREA NITROGEN 58 MG/DL (7-18); CHLORIDE 103 MEQ/L (98-107); GLOMERULAR FILTRATION RATE 14 ML/MIN (>89); POTASSIUM 5.7 MEQ/L (3.5-5.1); SODIUM (NA) 135 MEQ/L (136-145)
[2017-03-29 09:53] LABS: GLUCOSE,FASTING 88 MG/DL (74-99)
[2017-03-29 10:00] LABS: ALKALINE PHOSPHATASE 124 U/L (45-117); ALT (GPT) 11 U/L (12-78); LDL CHOLESTEROL 93 MG/DL (0-99); TOTAL BILIRUBIN ADULT 0.3 MG/DL (0.2-1.0)
[2017-03-29 16:58] LABS: HEMOGLOBIN A1a 1.2 %; HEMOGLOBIN A1b 1.1 %; HEMOGLOBIN Ao 80.5 %; HEMOGLOBIN F 1.6 %; HEMOGLOBIN LA1C 1.8 %; HEMOGLOBIN P3 4.7 %
== END ==
LOC: PLAB 07:01
PROVIDERS: ATTEND Internal Medicine
DX: E78.5 Hyperlipidemia, unspecified (principal); I12.9 Hypertensive chronic kidney disease with stage 1 through stage 4 chronic kidney disease, or unspecified chronic kidney disease; N18.3 Chronic kidney disease, stage 3 (moderate); D63.1 Anemia in chronic kidney disease; E11.22 Type 2 diabetes mellitus with diabetic chronic kidney disease
CPT/HCPCS: 36415; 80053; 80061; 83036

== ENCOUNTER → 2017-06-29 | Outpatient (CLI) | payer MEDICARE, OTHER ==
[2017-06-29 09:53] LABS: AUTOMATED NEUTROPHIL # 2.7 TH/MM3 (1.8-7.7); BASOPHIL % 0.8 % (0.0-2.0); EOSINOPHIL # 0.3 TH/MM3 (0-0.4); EOSINOPHIL % 5.4 % (0.0-4.0); HEMATOCRIT 36.2 % (39.0-51.0); HEMO FLAGS DIFF FINAL; LYMPH % 34.8 % (9.0-44.0); MEAN CELL VOLUME 85.6 FL (80.0-100.0); MEAN CORPUSCULAR HEMOGLOBIN 27.5 PG (27.0-34.0); MEAN CORPUSCULAR HGB CONC 32.1 % (32.0-36.0); MONO % 10.9 % (0.0-8.0); NEUT % 48.1 % (16.0-70.0); PLATELET COUNT 214 TH/MM3 (150-450); RED BLOOD COUNT 4.23 MIL/MM3 (4.50-5.90); RED CELL DISTRIBUTION WIDTH 15.3 % (11.6-17.2); WHITE BLOOD COUNT 5.6 TH/MM3 (4.0-11.0)
[2017-06-29 10:32] LABS: ANION GAP 6 MEQ/L (5-15); BLOOD UREA NITROGEN 65 MG/DL (7-18); CHLORIDE 107 MEQ/L (98-107); GLOMERULAR FILTRATION RATE 11 ML/MIN (>89); GLUCOSE,FASTING 88 MG/DL (74-99); POTASSIUM 4.7 MEQ/L (3.5-5.1); SODIUM (NA) 139 MEQ/L (136-145)
[2017-06-29 11:14] LABS: ALKALINE PHOSPHATASE 138 U/L (45-117); ALT (GPT) 23 U/L (12-78); AST (GOT) 15 U/L (15-37); TOTAL BILIRUBIN ADULT 0.3 MG/DL (0.2-1.0)
== END ==
LOC: PLAB 07:13
PROVIDERS: ATTEND Internal Medicine
DX: N18.6 End stage renal disease (principal); D63.1 Anemia in chronic kidney disease
CPT/HCPCS: 36415; 80053; 85025